=== PATIENT | female | born 1945 | race Caucasian/White ===

== ENCOUNTER 2022-12-01 07:29 | Day surgery (SDC) | payer MEDICARE, SELFPAY ==
[2022-11-27 09:39] VITALS: BMI 27.0
--- NOTE | 2022-11-28 08:07 | MHC.SHP ---
Pre-Procedural Eval Section A Date of Service: 11/28/22 The patient is an INPATIENT: No Changes since office visit: No Cold of Flu in the past 2 weeks, No New Medical Problems, No Changes in Medication and No Patient answered all questions The History & Physical has been completed within 30 days and I have reviewed it.: Yes Section B Chief Complaint: Age-related nuclear cataract, right eye Allergies: Allergies Allergy/AdvReac Type Severity Reaction Status Date / Time Sulfa (Sulfonamide Allergy Unknown Verified 09/26/19 00:00 Antibiotics) Plan Diagnosis/Plan: Unchanged I have reviewed the history and physical and performed a pertinent physical examination on my patient. No changes have occurred unless specified. Time Spent With Patient Time: Total time managing care of this patient today ____ minutes.
--- NOTE | 2022-12-01 07:38 | HO.ANESPROP2 ---
HPI - Anesthesia Eval Consult details Narrative: 77 F for right cataract extraction PMFSH Past Medical History Medical History Bunion Carpal tunnel syndrome Skin cancer Breast cancer GERD (gastroesophageal reflux disease) Elevated cholesterol (atherosclerosis) HTN (hypertension) Functional capacity: independent ambulation Family History Family history of problems with anesthesia: No Surgical History Surgical History History of eyelid surgery History of bunionectomy History of carpal tunnel repair H/O carotid endarterectomy Hx of lumpectomy Hx of appendectomy History of suburethral sling procedure History of Problems with Anesthesia: No Social History Social History Are you a primary progressive care unit registered nurse to a significant other at home: No Do you presently have visiting nurse or other home services: No Patient Tobacco Use Status: Never used Tobacco Use of substances other than those prescribed or required for medical reasons: No Have you been hit, kicked, punched, or otherwise hurt by someone within the past year? If so, by whom?: No Advance Directives: No Advance Directives Information Provided: Yes Advance Directives on File: No Recently lost weight without trying: No Eating poorly because of decreased appetite: No Nutrition Risks: No Nutritional Risk Patient : No : No Poor oral hygiene: Yes (partial upper denture) Meds Allergies Allergy/AdvReac Type Severity Reaction Status Date / Time Sulfa (Sulfonamide Allergy Unknown Redness of Verified 12/01/22 07:46 Antibiotics) Skin Active Medications: Current Medications Cyclopentolate HCl (Cyclopentolate 1 % Ophth Eli 2 Ml Drpbtl) 1 drop EYE-RIGHT Q5M ENEDELIA Stop: 12/01/22 07:41 Ketorolac Tromethamine (Ketorolac Tromethamine 0.5% Op 5 Ml Drops) 1 drop EYE-RIGHT Q5M ENEDELIA Stop: 12/01/22 07:41 Phenylephrine HCl (Phenylephrine Hcl 2.5% Oph Eli 2 Ml Bottle) 1 drop EYE-RIGHT Q5M ENEDELIA Stop: 12/01/22 07:41 Povidone Iodine (Povidone Iodine 5 % Ophth Soln 30 Ml Bottle) 1 appl EYE-RIGHT PREOP PRN PRN Reason: Pre-Op Surgical Implant Prophy Tropicamide (Tropicamide 1 % Ophth Eli 3 Ml Btl) 1 drop EYE-RIGHT Q5M [facility] Stop: 12/01/22 07:41 Home Medications Medication Instructions Recorded Confirmed Last Taken Type amlodipine 5 mg tablet 5 mg PO DAILY 11/27/22 11/27/22 Unknown History anastrozole 1 mg tablet 1 mg PO DAILY 11/27/22 11/27/22 Unknown History aspirin 81 mg tablet,delayed 81 mg PO DAILY 11/27/22 11/27/22 Unknown History release atenolol 25 mg tablet 25 mg PO DAILY 11/27/22 11/27/22 Unknown History calcium carbonate 600 mg calcium 600 mg PO DAILY 11/27/22 11/27/22 Unknown History (1,500 mg) tablet (Calcium) cholecalciferol (vitamin D3) 25 25 mcg PO DAILY 11/27/22 11/27/22 Unknown History mcg (1,000 unit) capsule (Vitamin D3) lactobacillus comb no.10 20 20,000 mmu cells PO DAILY 11/27/22 11/27/22 Unknown History billion cell capsule (Probiotic) multivitamin 1 tab PO DAILY 11/27/22 11/27/22 Unknown History omeprazole 20 mg capsule,delayed 20 mg PO DAILY 11/27/22 11/27/22 Unknown History release simvastatin 20 mg tablet 20 mg PO BEDTIME 11/27/22 11/27/22 Unknown History timolol maleate 0.5 % eye drops 1 drp ophthalmic-Right DAILY 11/27/22 11/27/22 Unknown History Exam Exam Date and Time: December 01, 2022 0738 Height,Weight and Vital Signs: Height 4 ft 10 in Weight 58.513 kg Airway Mallampati Class: III Loose/Missing/Broken Teeth: Yes Assessment and Plan Assessment Anesthesia Assessment: Anesthesia Plan Discussed and Chart Reviewed Final Anesthetic Review Family History of Problems with Anesthesia: No History of Problems with Anesthesia: No NPO: Yes ASA Class: II Final Preanesthetic Review: Meds/Allgs Chart Reviewed, Consent Obtained/Reviewed and Anes Risks/Benef Reviewed Patient Risk: Intermediate Procedure Risk: Intermediate Anesthetic Plan Anesthetic Plan: MAC: Disposition: Standard PACU
[2022-12-01 07:46] VITALS: BP 173/62; PULSE 64; RESP 16; TEMP 36.8; O2SAT 96
[2022-12-01] MEDS: Tetracaine HCl/PF 0.5% Oph Sol 4 ML DROPS 1 DROP EYE-RIGHT (07:50)
[2022-12-01] MEDS: Cyclopentolate 1 % Ophth Sol 2 ML DRPBTL 1 DROP EYE-RIGHT ×3 (07:52→08:03)
[2022-12-01] MEDS: Tropicamide 1 % Ophth Sol 3 ML BTL 1 DROP EYE-RIGHT ×3 (07:53→08:05)
[2022-12-01] MEDS: Ketorolac Tromethamine 0.5% Op 5 ML DROPS 1 DROP EYE-RIGHT ×3 (07:55→08:06)
[2022-12-01] MEDS: Phenylephrine HCL 2.5% Oph SoL 2 ML BOTTLE 1 DROP EYE-RIGHT ×3 (07:57→08:07)
--- NOTE | 2022-12-01 08:37 | HO.PNOPHT ---
Ophthalmology Procedure Procedure Date of Service: 12/01/22 Ophthalmology Viscoelastic: Healon Duet Dual Pack Pro Ophthalmology Lenses: TECNIS [id number] (20.5) Procedure Notes: PREOPERATIVE DIAGNOSIS: Decreased visual acuity right eye secondary to cataract POSTOPERATIVE DIAGNOSIS: Same PROCEDURE: Right cataract extraction with intraocular lens insertion SURGEON: Faizan Small M.D. ANESTHESIA: Topical/MAC ESTIMATED BLOOD LOSS: None COMPLICATIONS: None After obtaining informed consent, the patient was brought to the operating room suite and placed in the supine position. After adequate sedation per anesthesia, topical drops of Tetracaine were given to the right eye. The eye was then prepped and draped in the usual sterile fashion. The operating room microscope was then positioned over the operative eye and a lid speculum placed. A paracentesis was created. Viscoelastic was then instilled into the anterior chamber. A three plane incision was then created temporally, utilizing a 2.85 mm keratome. Capsulotomy forceps were then utilized to create a circular tear capsulotomy. Hydrodissection and hydrodelineation were carried out until adequate mobilization of the nucleus occurred. Phacoemulsification was then utilized to remove the dense central nucleus followed by removal of the cortical material utilizing the automated aspiration irrigation unit. Viscoelastic was instilled into the posterior capsular bag followed by placement of a posterior chamber intraocular lens without difficulty. The residual Viscoelastic was then removed utilizing the automated IA machine. The wound was checked and found to be watertight. The patient tolerated the procedure well and the lid speculum was removed. Intracameral injection of Vigamox 0.1 mL followed by a subtenon injection of Kenalog-40 0.2 mL were administered. The patient will be seen in the a.m.
[2022-12-01 09:00] VITALS: BP 147/57; PULSE 60; RESP 13; TEMP 36.3; O2SAT 99
== END 2022-12-01 09:23 | disposition home or self-care (01) ==
PROVIDERS: PCP Nurse Practitioner Family; Visit Provider Ophthalmology
PROC: (CPT 66985; principal; 2022-12-01 09:10)
DX: H25.11 Age-related nuclear cataract, right eye (principal); H54.7 Unspecified visual loss; E78.5 Hyperlipidemia, unspecified; I10 Essential (primary) hypertension; Z85.3 Personal history of malignant neoplasm of breast; Z85.828 Personal history of other malignant neoplasm of skin; Z79.82 Long term (current) use of aspirin; Z79.899 Other long term (current) drug therapy
CPT/HCPCS: 66984; J2250; J2405; J3010; J3301; V2632

== ENCOUNTER 2022-12-15 07:41 | Day surgery (SDC) | payer MEDICARE, SELFPAY ==
[2022-11-27 09:44] VITALS: BMI 27.0
--- NOTE | 2022-12-12 07:48 | MHC.SHP ---
Pre-Procedural Eval Section A Date of Service: 12/12/22 The patient is an INPATIENT: No Changes since office visit: No Cold of Flu in the past 2 weeks, No New Medical Problems, No Changes in Medication and No Patient answered all questions The History & Physical has been completed within 30 days and I have reviewed it.: Yes Section B Chief Complaint: Age-related nuclear cataract, left eye Allergies: Allergies Allergy/AdvReac Type Severity Reaction Status Date / Time Sulfa (Sulfonamide Allergy Unknown Redness of Verified 12/01/22 07:46 Antibiotics) Skin Plan Diagnosis/Plan: Unchanged I have reviewed the history and physical and performed a pertinent physical examination on my patient. No changes have occurred unless specified. Time Spent With Patient Time: Total time managing care of this patient today ____ minutes.
--- NOTE | 2022-12-12 10:50 | P.CONAN_ITS ---
Documented by User: Cindy Rojo NP 12/12/22 10:50 HPI - Anesthesia Eval Consult details Narrative: 77yo F for Left Cataract Extraction IOL Insertion PCP cleared Right eye 12/01/22: Fent 50, Midaz 1, Zofran 4 PMFSH Past Medical History Medical History Bunion Carpal tunnel syndrome Skin cancer Breast cancer GERD (gastroesophageal reflux disease) Elevated cholesterol (atherosclerosis) HTN (hypertension) Family History Family history of problems with anesthesia: No Surgical History Surgical History History of eyelid surgery History of bunionectomy History of carpal tunnel repair H/O carotid endarterectomy Hx of lumpectomy Hx of appendectomy History of suburethral sling procedure History of Problems with Anesthesia: No Social History Social History Are you a primary pharmacy care coordinator to a significant other at home: No Do you presently have visiting nurse or other home services: No Patient Tobacco Use Status: Never used Tobacco Use of substances other than those prescribed or required for medical reasons: No Have you been hit, kicked, punched, or otherwise hurt by someone within the past year? If so, by whom?: No Advance Directives: No Advance Directives Information Provided: Yes Advance Directives on File: No Recently lost weight without trying: No Eating poorly because of decreased appetite: No Nutrition Risks: No Nutritional Risk Patient : No : No Poor oral hygiene: Yes (partial upper denture) Meds Allergies Allergy/AdvReac Type Severity Reaction Status Date / Time Sulfa (Sulfonamide Allergy Unknown Redness of Verified 12/01/22 07:46 Antibiotics) Skin Home Medications Medication Instructions Recorded Confirmed Last Taken Type amlodipine 5 mg tablet 5 mg PO DAILY 11/27/22 11/27/22 12/15/22 History anastrozole 1 mg tablet 1 mg PO DAILY 11/27/22 11/27/22 12/15/22 History aspirin 81 mg tablet,delayed 81 mg PO DAILY 11/27/22 11/27/22 Unknown History release atenolol 25 mg tablet 25 mg PO DAILY 11/27/22 11/27/22 Unknown History calcium carbonate 600 mg calcium 600 mg PO DAILY 11/27/22 11/27/22 Unknown History (1,500 mg) tablet (Calcium) cholecalciferol (vitamin D3) 25 25 mcg PO DAILY 11/27/22 11/27/22 Unknown History mcg (1,000 unit) capsule (Vitamin D3) lactobacillus comb no.10 20 20,000 mmu cells PO DAILY 11/27/22 11/27/22 Unknown History billion cell capsule (Probiotic) multivitamin 1 tab PO DAILY 11/27/22 11/27/22 Unknown History omeprazole 20 mg capsule,delayed 20 mg PO DAILY 11/27/22 11/27/22 Unknown History release simvastatin 20 mg tablet 20 mg PO BEDTIME 11/27/22 11/27/22 Unknown History timolol maleate 0.5 % eye drops 1 drp ophthalmic-Right DAILY 11/27/22 11/27/22 Unknown History Exam Exam Date and Time: December 12, 2022 1050 Height,Weight and Vital Signs: Height 4 ft 10 in Weight 58.513 kg Assessment and Plan Assessment Anesthesia Assessment: Chart Reviewed Final Anesthetic Review Family History of Problems with Anesthesia: No History of Problems with Anesthesia: No Documented by User: Yayo Clark MD 12/15/22 08:29 [facility] Past Medical History Medical History Bunion Carpal tunnel syndrome Skin cancer Breast cancer GERD (gastroesophageal reflux disease) Elevated cholesterol (atherosclerosis) HTN (hypertension) Surgical History Surgical History History of eyelid surgery History of bunionectomy History of carpal tunnel repair H/O carotid endarterectomy Hx of lumpectomy Hx of appendectomy History of suburethral sling procedure Social History Social History Are you a primary pharmacy care coordinator to a significant other at home: No Do you presently have visiting nurse or other home services: No Patient Tobacco Use Status: Never used Tobacco Use of substances other than those prescribed or required for medical reasons: No Have you been hit, kicked, punched, or otherwise hurt by someone within the past year? If so, by whom?: No Advance Directives: No Advance Directives Information Provided: Yes Advance Directives on File: No Recently lost weight without trying: No Eating poorly because of decreased appetite: No Nutrition Risks: No Nutritional Risk Patient : No : No Poor oral hygiene: Yes (partial upper denture) Meds Allergies Allergy/AdvReac Type Severity Reaction Status Date / Time Sulfa (Sulfonamide Allergy Unknown Redness of Verified 12/01/22 07:46 Antibiotics) Skin Home Medications Medication Instructions Recorded Confirmed Last Taken Type amlodipine 5 mg tablet 5 mg PO DAILY 11/27/22 11/27/22 12/15/22 History anastrozole 1 mg tablet 1 mg PO DAILY 11/27/22 11/27/22 12/15/22 History aspirin 81 mg tablet,delayed 81 mg PO DAILY 11/27/22 11/27/22 Unknown History release atenolol 25 mg tablet 25 mg PO DAILY 11/27/22 11/27/22 Unknown History calcium carbonate 600 mg calcium 600 mg PO DAILY 11/27/22 11/27/22 Unknown History (1,500 mg) tablet (Calcium) cholecalciferol (vitamin D3) 25 25 mcg PO DAILY 11/27/22 11/27/22 Unknown History mcg (1,000 unit) capsule (Vitamin D3) lactobacillus comb no.10 20 20,000 mmu cells PO DAILY 11/27/22 11/27/22 Unknown History billion cell capsule (Probiotic) multivitamin 1 tab PO DAILY 11/27/22 11/27/22 Unknown History omeprazole 20 mg capsule,delayed 20 mg PO DAILY 11/27/22 11/27/22 Unknown History release simvastatin 20 mg tablet 20 mg PO BEDTIME 11/27/22 11/27/22 Unknown History timolol maleate 0.5 % eye drops 1 drp ophthalmic-Right DAILY 11/27/22 11/27/22 Unknown History Exam Airway Mallampati Class: II TM Dist: >3cm Neck ROM: Full Loose/Missing/Broken Teeth: Yes Heart: [id number] Lungs: cta b/l Assessment and Plan Assessment Anesthesia Assessment: Anesthesia Plan Discussed Final Anesthetic Review NPO: Yes ASA Class: II Final Preanesthetic Review: No Changes in Pt Med Stat, Meds/Allgs Chart Reviewed, Consent Obtained/Reviewed and Anes Risks/Benef Reviewed Patient Risk: Intermediate Procedure Risk: Intermediate Assessment/Block/Sedation in SS: Assess/Block/Sedation-SS Anesthetic Plan Anesthetic Plan: MAC: and Agree w/ Assess. and Plan Disposition: Standard PACU
[2022-12-15 08:31] VITALS: BP 143/64; PULSE 62; RESP 16; TEMP 36.9; O2SAT 95
[2022-12-15] MEDS: Lactated Ringers 500 ML 50 ML IV (08:34)
[2022-12-15] MEDS: Tetracaine HCl/PF 0.5% Oph Sol 4 ML DROPS 1 DROP EYE-LEFT (08:34)
[2022-12-15] MEDS: Cyclopentolate 1 % Ophth Sol 2 ML DRPBTL 1 DROP EYE-LEFT ×3 (08:36→08:42)
[2022-12-15] MEDS: Ketorolac Tromethamine 0.5% Op 5 ML DROPS 1 DROP EYE-LEFT ×3 (08:37→08:42)
[2022-12-15] MEDS: Tropicamide 1 % Ophth Sol 3 ML BTL 1 DROP EYE-LEFT ×3 (08:37→08:42)
[2022-12-15] MEDS: Phenylephrine HCL 2.5% Oph SoL 2 ML BOTTLE 1 DROP EYE-LEFT ×3 (08:38→08:44)
--- NOTE | 2022-12-15 09:26 | HO.PNOPHT ---
Ophthalmology Procedure Procedure Date of Service: 12/15/22 Ophthalmology Viscoelastic: Healon Duet Dual Pack Pro Ophthalmology Lenses: TECNIS [id number] (20.5) Procedure Notes: PREOPERATIVE DIAGNOSIS: Decreased visual acuity left eye secondary to cataract POSTOPERATIVE DIAGNOSIS: Same PROCEDURE: Left cataract extraction with intraocular lens insertion SURGEON: Faizan Small M.D. ANESTHESIA: Topical/MAC ESTIMATED BLOOD LOSS: None COMPLICATIONS: None After obtaining informed consent, the patient was brought to the operation room suite and placed in the supine position. After adequate sedation per anesthesia, topical drops of Tetracaine were given to the left eye. The eye was then prepped and draped in the usual sterile fashion. The operating room microscope was then positioned over the operative eye and a lid speculum placed. A paracentesis was created. Viscoelastic was then instilled into the anterior chamber. A three plane incision was then created temporally, utilizing a 2.85 mm keratome. Capsulotomy forceps were then utilized to create a circular tear capsulotomy. Hydrodissection and hydrodelineation were carried out until adequate mobilization of the nucleus occurred. Phacoemulsification was then utilized to remove the dense central nucleus followed by removal of the cortical material utilizing the automated aspiration irrigation unit. Viscoat elastic was instilled into the posterior capsular bag followed by placement of a posterior chamber intraocular lens without difficulty. The residual Viscoat elastic was then removed utilizing the automated IA machine. The wound was check and found to be watertight. The patient tolerated the procedure well and the lid speculum was removed. Intracameral injection of Vigamox 0.1 mL followed by a subtenon injection of Kenalog-40 0.2 mL were administered. The patient will be seen in the a.m.
[2022-12-15 09:49] VITALS: BP 144/56; PULSE 60; RESP 16; TEMP 36.2; O2SAT 97
== END 2022-12-15 10:06 | disposition home or self-care (01) ==
PROVIDERS: PCP Nurse Practitioner Family; Visit Provider Ophthalmology
PROC: (CPT 66985; principal; 2022-12-15 09:40)
DX: H25.12 Age-related nuclear cataract, left eye (principal); H52.4 Presbyopia; H40.9 Unspecified glaucoma; H40.051 Ocular hypertension, right eye; H43.399 Other vitreous opacities, unspecified eye; H11.153 Pinguecula, bilateral; H18.413 Arcus senilis, bilateral; I10 Essential (primary) hypertension; E78.2 Mixed hyperlipidemia; M85.80 Other specified disorders of bone density and structure, unspecified site; K21.9 Gastro-esophageal reflux disease without esophagitis; C50.911 Malignant neoplasm of unspecified site of right female breast; Z79.811 Long term (current) use of aromatase inhibitors; Z79.899 Other long term (current) drug therapy; Z66 Do not resuscitate; Z88.2 Allergy status to sulfonamides
CPT/HCPCS: 66984; J2250; J3301; V2632

== ENCOUNTER 2023-12-07 12:20 | Outpatient (AMB) | payer MEDICARE, SELFPAY ==
[2023-12-07 12:31] VITALS: BP 140/70; PULSE 62; O2SAT 97; BMI 26.5
--- NOTE | 2023-12-07 12:31 | A.OFFPC_ITS ---
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 Architectural Draftsperson Required: No Accompanied by: Self / Same As Patient Allergies Sulfa (Sulfonamide Antibiotics) Allergy (Unknown, Verified 12/07/23 17:05) Redness of Skin Medication List - Last Reconciled 12/07/23 [facility] amlod[facility]ine 5 mg PO DAILY 90 days anastrozole 1 mg PO DAILY aspirin 81 mg PO DAILY atenolol 25 mg PO DAILY 90 days calcium carbonate (Calcium 600) 600 mg PO DAILY cholecalciferol (vitamin D3) (Vitamin D3) 25 mcg PO DAILY lactobacillus comb no.10 (Probiotic) 20,000 mmu cells PO DAILY multivitamin 1 tab PO DAILY omeprazole 20 mg PO DAILY 90 days simvastatin 20 mg PO BEDTIME 90 days timolol maleate 0.5% 1 drp ophthalmic-Right DAILY Tobacco use date assessed: 12/07/23 Fall risk assessment: No Falls in past year Last assessed Fall Risk: 12/07/23 Dental Screening Dental Screen Date: 12/07/23 Did you have a dental visit in the last 12 months?: Yes Did you have a dental problem in the last 6 months where you did not have access to dental care?: No Was dental information given to patient?: Patient has dentist HPI SUPERVISOR ADVICE requesting pe HPI Details New pt is here to establish care. Will order labs. Colon screen is up to date according to pt, will track this down. Mammo is up to date according to pt. Pt sees oncology due to hx of breast cancer. She also sees derm due to hx of skin cancer. HTN: Blood pressure is stable today. Denies chest pain, shortness of breath, headache, dizziness, and blurred vision. [facility] Medical History (Updated 12/07/23 @ 13:04 by ZORAN Martin) Bunion Carpal tunnel syndrome Skin cancer Breast cancer GERD (gastroesophageal reflux disease) Elevated cholesterol (atherosclerosis) HTN (hypertension) Surgical History History of eyelid surgery History of bunionectomy History of carpal tunnel repair H/O carotid endarterectomy Hx of lumpectomy Hx of appendectomy History of suburethral sling procedure Family History Mother Lung cancer Father Suicide Mental health problem Social History [facility] Are you a primary critical care nurse specialist to a significant other at home: No Do you presently have visiting nurse or other home services: No Alcohol intake: current Alcohol intake frequency: a few times a month Alcohol type: wine Patient Tobacco Use Status: Never used Tobacco e-Cigarette/Vaping Use: Never Used service: No Current occupational status: retired Current occupational exposures/hazards: No Cognitive needs: No Hearing needs: No Vision needs: Yes Questionnaire PHQ-9 Over the last 2 weeks, how often have you been bothered by any of the following problems? 1. Little interest or pleasure in doing things: not at all 2. Feeling down, depressed, or hopeless: not at all 3. Trouble falling or staying asleep, or sleeping too much: not at all 4. Feeling tired or having little energy: not at all 5. Poor appetite or overeating: not at all 6. Feeling bad about yourself - or that you are a failure or have let yourself or your family down: not at all 7. Trouble concentrating on things, such as reading the newspaper or watching television: not at all 8. Moving or speaking so slowly that other people could have noticed. Or the opposite - being so fidgety or restless that you have been moving around a lot more than usual: not at all 9. Thoughts that you would be better off or of hurting yourself in some way: not at all Total score: 0 Depression Screening Interpretation: Negative Depression Screening Done: Yes 15392 - PHQ-9 Billing: Yes Source: Developed by Drs. Aman Bursn, Leann Graves, Rafael Bae and colleagues, with an educational jose guadalupe from [employer]. Thrive Questionnaire Date Thrive assessed: 12/07/23 I am a: Patient What is your living situation today?: I have a steady place to live Within the past 12 months, did the food you bought not last and you didn't have the money to get more?: Never true Within the past 12 months, did you worry whether your food would run out before you got money to buy more?: Never true Do you have trouble paying for medicines?: No Do you have trouble getting transportation to medical appointments?: No Do you have trouble paying your heating and electricity bill?: No Do you have trouble taking care of your child, family member or friend?: No Do you have trouble with day-to-day activities such as bathing, preparing meals, shopping, managing finances, etc.?: No Are you currently unemployed and looking for a job?: No Are you interested in more education?: No Please select the resources that you would like help with: None Currently or been in a relationship where the following occur: No concerns reported THRIVE Score: 0 AUDIT C Alcohol Use Questionnaire (AUDIT-C) 1. How often do you have a drink containing alcohol?: 2-4 times a month 2. How many drinks containing alcohol do you have on a typical day when you are drinking?: 1 or 2 3. How often do you have six or more drinks on one occasion?: Never Total Score: 2 Score Reviewed/Action Taken: Yes DAIANA-7 AMB Questionnaire DAIANA-7 Date DAIANA - 7 assessed: 12/07/23 Feeling nervous, anxious, or on edge: 0 = Not at all Not being able to stop or control worryin = Not at all Worrying too much about different things: 0 = Not at all Trouble relaxin = Not at all Being so restless that it is hard to sit still: 0 = Not at all Becoming easily annoyed or irritable: 0 = Not at all Feeling afraid as if something awful might happen: 0 = Not at all Total DAIANA-7 score (0-4 normal; 5-9 mild; 10-14 moderate; 15-21 severe): 0 Source: Developed by Drs. Aman Burns, Leann Graves, Rafael Bae and colleagues, with an educational jose guadalupe from [employer]. DAIANA-7 Assessment Billing DAIANA-7 Assessment Tool: DAIANA-7 Assessment 54646 Review of Systems Const Denies chills and Denies fever(s) Eyes Denies blurry vision ENT Denies vertigo, Denies dizziness and Denies sore throat Card Denies chest pain at rest, Denies chest pain with activity, Denies diaphoresis, Denies dyspnea and Denies dyspnea on exertion Resp Denies cough, Denies dyspnea, Denies dyspnea on exertion and Denies wheezing GI Denies abdominal pain, Denies melena, Denies hematochezia, Denies constipation, Denies diarrhea and Denies loose stools Denies hematuria Musc Denies numbness and Denies tingling Skin/Breast Denies lesions Neuro Denies vertigo, Denies dizziness, Denies numbness and Denies tingling Psych Denies anxiety, Denies depression, Denies homicidal ideation, Denies suicidal ideation and Denies other (substance abuse) Aller/Immun Denies wheezing Physical exam (Primary Care) Vital Signs: Last Vital Signs Pulse 62 12/07/23 12:31 BP 138/72 12/07/23 13:09 Pulse Ox 97 12/07/23 12:31 BMI result Body Mass Index 26.5 Tobacco/Smoking Status: Tobacco use Status Tobacco use date assessed 12/07/23 12/07/23 12:33 Patient Tobacco Use Status Never used Tobacco 12/07/23 12:40 e-Cigarette/Vaping Use Never Used 12/07/23 12:40 PHQ-9: PHQ-9 Score PHQ-9: Total score 0 12/07/23 13:21 Depression Screening Interpretation: Negative Thrive Assessment: Date of Thrive Assessment Date Thrive assessed 12/07/23 12/07/23 12:33 Currently or been in a relationship where the following occur: No concerns reported Const General: cooperative Nutritional Appearance: well nourished Orientation/consciousness: patient oriented x3 HENMT Head: Yes normal to inspection, Yes normocephalic and Yes atraumatic Ears: TM's normal bilaterally Eyes General: appearance normal, both eyes and all related structures Alignment and Position: alignment normal and position normal Neck Neck: Yes normal visual inspection, Yes no lymphadenopathy and Yes supple Resp Effort & Inspection: normal respiratory effort Auscultation: clear to auscultation bilaterally Cardio Rate: regular rate Rhythm: regular rhythm Heart sounds: S1 normal heart sound present, S2 normal heart sound present and no murmurs GI Palpation (GI): Soft to palpation and nontender Auscultation: normal bowel sounds Skin Other: multiple skin tags to neck (posterior/lateral/anterior) Rashes: no rashes Neuro General: patient oriented x3, moves all extremities, no focal motor deficits and deep tendon reflexes 2+ bilaterally Romberg Test: Negative Psych Appearance: grossly normal Mental Status: mental status grossly normal Speech and movement: Normal speech and movement present Affect: normal affect Attitude: cooperative Thought process: Normal thought process present Thought content: Normal thought content present Insight: Good insight present (Psych) Judgement: Good judgement present (Psych) Assessment and Plan Assessment & Plan (1) HTN (hypertension): Code(s): I10 - Essential (primary) hypertension Plan: Stable, labs ordered (2) Encounter for routine adult physical exam with abnormal findings: Code(s): Z00.01 - Encounter for general adult medical examination with abnormal findings Plan: Labs ordered (3) Postmenopausal: Code(s): Z78.0 - Asymptomatic menopausal state Plan: Vitamin D ordered, gets bone densities through hem/oncology Plan The patient agreed to the use of a certified medical asst for this encounter. Scribed for FERMIN King-BC by Ijeoma Diamond certified medical asst, on 12/07/2023 at 12:50 EST. Orders: Orders Vitamin D 25-OH Total Today Z78.0 - Asymptomatic menopausal state Complete Blood Count Auto Diff Today I10 - Essential (primary) hypertension, Z00. - Encounter for general adult medical examination with abnormal findings Comprehensive [place]. Panel Fast Today I10 - Essential (primary) hypertension, Z00. - Encounter for general adult medical examination with abnormal findings TSH reflex Free T4 Today I10 - Essential (primary) hypertension, Z00. - Encounter for general adult medical examination with abnormal findings UA CC w/rflx Micro + Cult Today I10 - Essential (primary) hypertension, Z00. - Encounter for general adult medical examination with abnormal findings Lipid Panel Today I10 - Essential (primary) hypertension, Z00. - Encounter for general adult medical examination with abnormal findings Medications: Changed From amlodipine 5 mg PO DAILY To amlodipine 5 mg PO DAILY 90 tabs 1RF 90 days From simvastatin 20 mg PO BEDTIME To simvastatin 20 mg PO BEDTIME 90 tabs 1RF 90 days From atenolol 25 mg PO DAILY To atenolol 25 mg PO DAILY 90 tabs 1RF 90 days From omeprazole 20 mg PO DAILY To omeprazole 20 mg PO DAILY 90 caps 1RF 90 days Coding Level of Care Code New Pt Level 3 (95834) Diagnoses HTN (hypertension) I10 Encounter for routine adult physical exam with abnormal findings Z00.01 Postmenopausal Z78.0 Additional Codes DAIANA-7 Assessment Billing - DAIANA-7 Assessment Tool: DAIANA-7 Assessment 65154 ([id number])
[2023-12-07 13:09] VITALS: BP 138/72
== END 2023-12-07 14:04 | disposition home or self-care (01) ==
PROVIDERS: Visit Provider Nurse Practitioner Family
DX: I10 Essential (primary) hypertension (principal); Z00.01 Encounter for general adult medical examination with abnormal findings; Z78.0 Asymptomatic menopausal state

== ENCOUNTER → 2023-12-07 12:20 | Outpatient (BNVA) | payer MEDICARE, SELFPAY | PROVIDERS: Visit Provider Nurse Practitioner Family | DX: Z00.01 Encounter for general adult medical examination with abnormal findings (principal); I10 Essential (primary) hypertension; Z78.0 Asymptomatic menopausal state | CPT/HCPCS: 96127; 99202 ==

== ENCOUNTER 2023-12-21 06:18 | Outpatient (REF) | payer MEDICARE, SELFPAY ==
[2023-12-21 09:57] LABS: MANUAL DIFF FLAG NO
[2023-12-21 10:11] LABS: Basophils Percent Auto 0.7 % (0-2); Eosinophils Absolute Auto 0.1 X10*3/uL (0.0-0.4); Eosinophils Percent Auto 2.7 % (0-4); Hematocrit 41.3 % (37.0-47.0); Hemoglobin 13.7 g/dl (12.0-16.0); Imm Gran Abs Auto 0.01 X10*3/uL (0.00-0.03); Imm Gran Pct Auto 0.2 % (0.0-0.4); Lymphocytes Absolute Auto 1.5 X10*3/uL (1.2-4.9); Lymphocytes Percent Auto 33.2 % (20-40); Mean Corpuscular HGB Conc 33.2 g/dl (31.0-35.0); Mean Corpuscular Hemoglobin 29.5 pg (27.0-33.0); Mean Platelet Volume 9.5 fL (9.4-12.3); Monocytes Absolute Auto 0.3 X10*3/uL (0.1-1.2); Monocytes Percent Auto 7.6 % (2-11); Neutrophils Absolute Auto 2.4 x10*3/uL (2.0-8.3); Neutrophils Percent Auto 55.6 % (45-73); Platelet Count 266 X10*3/uL (160-400); Red Blood Count 4.64 X10*6/uL (4.20-5.50); Red Cell Distribution Width 12.7 % (11.0-16.0); White Blood Count 4.4 X10*3/uL (4.8-10.8)
[2023-12-21 10:48] LABS: Alanine Aminotransferase 19 U/L (0-31); Albumin Level 3.9 g/dL (3.5-5.0); Alkaline Phosphatase 74 U/L (39-117); Anion Gap 9 (12-20); Aspartate Amino Transferase 19 U/L (5-31); Bilirubin Total 0.8 mg/dL (0.0-1.0); Blood Urea Nitrogen 17 mg/dL (9-16); Calcium 9.3 mg/dL (8.4-10.2); Carbon Dioxide 31 mmol/L (22-29); Chloride 108 mmol/L (96-108); Cholesterol 147 mg/dL (<200); Estimated Glomerular Filt Rate > 60; Glucose Fasting 89 mg/dL (60-99); HDL Cholesterol 58 mg/dL (>40); LDL Cholesterol Calculated 74 mg/dL (<100); Potassium 3.6 mmol/L (3.3-5.1); Sodium 144 mmol/L (135-145); TSH reflex Free T4 1.42 uIU/mL (0.32-4.0); Total Protein 5.9 g/dL (6.5-8.0); Triglycerides 77 mg/dL (<150); Vitamin D 25-OH Total 70.9 ng/mL (>30)
[2023-12-21 13:25] LABS: Appearance Urine Cloudy; Color Urine Yellow; Glucose Urine UA Negative (Negative); Leukocyte Esterase Urine Small (1+) (Negative); Nitrite Urine Positive (Negative); PH 6.5 (5.0-9.0); UMIC TRIGGER UACC YES; Urine Blood Negative (Negative); Urine Ketones Negative (Negative); Urine Protein Negative (Neg-Trace)
[2023-12-21 13:56] LABS: Bacteria Urine 4+ (None Seen); Calcium Oxalate Crystals Urine Present; Hyaline Casts Urine 0-2 /LPF (0-2); RBC Urine 0-2 /HPF (0-2); UACC Culture Trigger YES; WBC Urine 0-5 /HPF (0-5)
== END 2023-12-21 06:19 | disposition home or self-care (01) ==
LOC: HO.HMGCLDS 06:18
PROVIDERS: PCP Nurse Practitioner Family; Visit Provider Nurse Practitioner Family
DX: Z00.01 Encounter for general adult medical examination with abnormal findings (principal); Z78.0 Asymptomatic menopausal state; I10 Essential (primary) hypertension; R82.79 Other abnormal findings on microbiological examination of urine
CPT/HCPCS: 36415; 80053; 80061; 81001; 82306; 84443; 85025; 87086; 87088; 87186

== ENCOUNTER 2024-01-01 06:05 | Outpatient (REF) | payer MEDICARE, SELFPAY ==
[2024-01-01 10:47] LABS: Appearance Urine Cloudy; Color Urine Yellow; Glucose Urine UA Negative (Negative); Leukocyte Esterase Urine Negative (Negative); Nitrite Urine Negative (Negative); Specific Gravity - Urine 1.015 (1.005-1.025); Urine Blood Negative (Negative); Urine Ketones Negative (Negative); Urine Protein Negative (Neg-Trace)
[2024-01-01 10:54] LABS: MANUAL DIFF FLAG NO
[2024-01-01 10:59] LABS: Basophils Absolute Auto 0.1 X10*3/uL (0.0-0.2); Basophils Percent Auto 1.3 % (0-2); Eosinophils Absolute Auto 0.1 X10*3/uL (0.0-0.4); Eosinophils Percent Auto 1.9 % (0-4); Hematocrit 39.3 % (37.0-47.0); Hemoglobin 13.2 g/dl (12.0-16.0); Imm Gran Abs Auto 0.02 X10*3/uL (0.00-0.03); Imm Gran Pct Auto 0.4 % (0.0-0.4); Lymphocytes Absolute Auto 1.6 X10*3/uL (1.2-4.9); Lymphocytes Percent Auto 33.5 % (20-40); Mean Corpuscular HGB Conc 33.6 g/dl (31.0-35.0); Mean Corpuscular Hemoglobin 29.8 pg (27.0-33.0); Mean Corpuscular Volume 88.7 fL (80.0-98.0); Mean Platelet Volume 9.5 fL (9.4-12.3); Monocytes Absolute Auto 0.4 X10*3/uL (0.1-1.2); Monocytes Percent Auto 7.9 % (2-11); Neutrophils Absolute Auto 2.6 x10*3/uL (2.0-8.3); Platelet Count 269 X10*3/uL (160-400); Red Blood Count 4.43 X10*6/uL (4.20-5.50); Red Cell Distribution Width 12.6 % (11.0-16.0); White Blood Count 4.7 X10*3/uL (4.8-10.8)
== END 2024-01-01 06:06 | disposition home or self-care (01) ==
LOC: HO.HMGCLDS 06:05
PROVIDERS: PCP Nurse Practitioner Family; Visit Provider Nurse Practitioner Family
DX: Z00.01 Encounter for general adult medical examination with abnormal findings (principal); I10 Essential (primary) hypertension; N39.0 Urinary tract infection, site not specified; D72.829 Elevated white blood cell count, unspecified
CPT/HCPCS: 36415; 81003; 85025; 87086

== ENCOUNTER 2024-02-01 06:06 | Outpatient (REF) | payer MEDICARE, SELFPAY ==
[2024-02-01 09:59] LABS: MANUAL DIFF FLAG NO
[2024-02-01 10:21] LABS: Basophils Absolute Auto 0.1 X10*3/uL (0.0-0.2); Basophils Percent Auto 1.4 % (0-2); Eosinophils Absolute Auto 0.1 X10*3/uL (0.0-0.4); Eosinophils Percent Auto 2.2 % (0-4); Hematocrit 39.5 % (37.0-47.0); Hemoglobin 13.2 g/dl (12.0-16.0); Imm Gran Abs Auto 0.01 X10*3/uL (0.00-0.03); Imm Gran Pct Auto 0.2 % (0.0-0.4); Lymphocytes Absolute Auto 1.6 X10*3/uL (1.2-4.9); Lymphocytes Percent Auto 31.5 % (20-40); Mean Corpuscular HGB Conc 33.4 g/dl (31.0-35.0); Mean Corpuscular Volume 89.8 fL (80.0-98.0); Mean Platelet Volume 9.6 fL (9.4-12.3); Monocytes Absolute Auto 0.4 X10*3/uL (0.1-1.2); Monocytes Percent Auto 8.1 % (2-11); Neutrophils Absolute Auto 2.9 x10*3/uL (2.0-8.3); Neutrophils Percent Auto 56.6 % (45-73); Platelet Count 277 X10*3/uL (160-400); Red Cell Distribution Width 12.8 % (11.0-16.0); White Blood Count 5.1 X10*3/uL (4.8-10.8)
== END 2024-02-01 06:07 | disposition home or self-care (01) ==
LOC: HO.HMGCLDS 06:06
PROVIDERS: PCP Nurse Practitioner Family; Visit Provider Nurse Practitioner Family
DX: D72.829 Elevated white blood cell count, unspecified (principal)
CPT/HCPCS: 36415; 85025

== ENCOUNTER 2024-03-08 09:53 | Outpatient (AMB) | payer MEDICARE, SELFPAY ==
[2024-03-08 09:59] VITALS: BP 120/78; PULSE 58; O2SAT 98; BMI 26.5
--- NOTE | 2024-03-08 09:59 | AM.OFFWIN_ITS ---
Intake Vital Signs 03/08/24 09:59 Height 4 ft 10 in Weight 127 lb BMI 26.5 BP 120/78 Blood Pressure Location Rt brachial Position Sitting Pulse 58 Pulse Source Pulse Oximeter Pulse Oximetry (%) 98 Oxygen Delivery Method Room Air Intake Visit Reasons: EP- severe pain rt thigh Intake Note: Patient here for severe pain in right thigh that has been present for about 1 week. Patient Tobacco Use Status: Never used Tobacco Allergies Sulfa (Sulfonamide Antibiotics) Allergy (Unknown, Verified 03/08/24 10:34) Redness of Skin Medication List - Last Reconciled 03/08/24 by Hugh Gibbons MD amlodipine 5 mg PO DAILY 90 days anastrozole 1 mg PO DAILY aspirin 81 mg PO DAILY atenolol 25 mg PO DAILY 90 days calcium carbonate (Calcium 600) 600 mg PO DAILY cholecalciferol (vitamin D3) (Vitamin D3) 25 mcg PO DAILY lactobacillus comb no.10 (Probiotic) 20,000 mmu cells PO DAILY multivitamin 1 tab PO DAILY omeprazole 20 mg PO DAILY 90 days simvastatin 20 mg PO BEDTIME 90 days timolol maleate 0.5% 1 drp ophthalmic-Right DAILY Do you need a note to return to daycare/school/sports/work: No HPI EP- severe pain rt thigh HPI Details 78 yr old female presents to the office for a sick visit. Reporting sharp pain in the right thigh for the past week. No history of trauma prior to onset. No difficulty walking, bearing weight, climbing or coming down stairs. Pain on pressing on a specific area on the thigh, wincing pain. Occ burning on the skin over the area. Prior history of breast Cancer. On ANastrozole. [facility] Medical History (Updated 12/23/23 @ 09:40 by FERMIN Martin-BRITTON) Bunion Carpal tunnel syndrome Skin cancer Breast cancer GERD (gastroesophageal reflux disease) Elevated cholesterol (atherosclerosis) HTN (hypertension) Surgical History History of eyelid surgery History of bunionectomy History of carpal tunnel repair H/O carotid endarterectomy Hx of lumpectomy Hx of appendectomy History of suburethral sling procedure Family History Mother Lung cancer Father Suicide Mental health problem Social History (Reviewed 12/07/23 @ 12:57 by Brenden Sandhu [facility]) Housing: Condominium Are you a primary urgent care physician assistant to a significant other at home: No Do you presently have visiting nurse or other home services: No Alcohol intake: current Alcohol intake frequency: a few times a month Alcohol type: wine Patient Tobacco Use Status: Never used Tobacco e-Cigarette/Vaping Use: Never Used service: No Current occupational status: retired Current occupational exposures/hazards: No Cognitive needs: No Hearing needs: No Vision needs: Yes Physical Exam Vital Signs: Last Vital Signs Pulse 58 03/08/24 09:59 BP 120/78 03/08/24 09:59 Pulse Ox 98 03/08/24 09:59 Oxygen Delivery Method Room Air 03/08/24 09:59 BMI result Body Mass Index 26.5 Const General: cooperative and healthy appearing Nutritional Appearance: well nourished Orientation/consciousness: patient oriented x3 Limitations: no limitations HEENT Head: Yes normal to inspection Eyes General: appearance normal, both eyes and all related structures Neck Neck: Yes normal visual inspection Chest Chest palpation & inspection: normal palpation of entire chest wall Resp Effort & Inspection: normal respiratory effort Neuro General: patient oriented x3 Extrem Other: A female medical office asst in the room during medical exam. Right leg: No visible bruising or rash. Tender area on palpation of the thigh over the medial side. Assessment & Plan Assessment & Plan (1) Deep vein thrombosis: Code(s): I82.409 - Acute embolism and thrombosis of unspecified deep veins of unspecified lower extremity Plan: Stat Ultrasound ordered. Result was read as negative. Patient informed, muscle relaxant and NSAIDS called in. Orders: Orders US venous duplex LE RT Today I82.409 - Acute embolism and thrombosis of unspecified deep veins of unspecified lower extremity Coding Level of Care Code Est Pt Level 4 (62111) Diagnoses Deep vein thrombosis I82.409
== END 2024-03-08 11:49 | disposition home or self-care (01) ==
PROVIDERS: PCP Nurse Practitioner Family; Visit Provider Internal Medicine
DX: I82.409 Acute embolism and thrombosis of unspecified deep veins of unspecified lower extremity (principal)

== ENCOUNTER 2024-03-08 10:31 | Outpatient (REF) | payer MEDICARE, SELFPAY ==
--- NOTE | ~2024-03-08 | US_ITS ---
EXAMINATION: US TRIPLEX LOWER EXTREMITY, RIGHT CLINICAL INFORMATION: Acute embolism and thrombosis of unspecified deep veins of unspecified extremity COMPARISON: None available. TECHNIQUE: Color-flow triplex imaging with spectral analysis and compression Doppler were performed on the right lower extremity. FINDINGS: Respiratory variation, normal compression and augmented flow are noted throughout the right lower extremity. The visualized common femoral vein, superficial femoral vein, profunda femoral vein, popliteal vein and midcalf peroneal and posterior tibial venous segments show no evidence of deep venous thrombosis. There is no Grijalva's cyst. US/US venous duplex LE RT IMPRESSION: No evidence of deep venous thrombosis involving the right lower extremity. This study was presented today to March 08, 2024 for interpretation. Stat results provided at this time as requested by referring provider. Electronically signed by: Griselda Gonzalez MD 03/08/2024 10:54 AM JAMIN EATON
== END 2024-03-08 10:32 | disposition home or self-care (01) ==
LOC: HO.HMGCX 10:31
PROVIDERS: PCP Nurse Practitioner Family; Visit Provider Internal Medicine
DX: I82.401 Acute embolism and thrombosis of unspecified deep veins of right lower extremity (principal)
CPT/HCPCS: 93971; 99212

== ENCOUNTER 2024-03-21 08:20 | Outpatient (AMB) | payer MEDICARE, SELFPAY ==
[2024-03-21 08:24] VITALS: BP 130/78; PULSE 60; O2SAT 97; BMI 27.0
--- NOTE | 2024-03-21 08:24 | MHC.OFFWIV ---
Intake Vital Signs 03/21/24 08:24 Height 4 ft 10 in Weight 129 lb BMI 27.0 BP 130/78 Blood Pressure Location Rt brachial Position Sitting Pulse 60 Pulse Source Pulse Oximeter Pulse Oximetry (%) 97 Oxygen Delivery Method Room Air Intake Visit Reasons: EP-rt side thigh rash Intake Note: Patient here for rash on right thigh that has been present for over 1 week. Patient Tobacco Use Status: Never used Tobacco Allergies Sulfa (Sulfonamide Antibiotics) Allergy (Unknown, Verified 03/21/24 08:33) Redness of Skin Do you need a note to return to daycare/school/sports/work: No HPI HPI Comments History of Present Illness Details History of Present Illness The patient is a 78-year-old female presenting with a rash on her right thigh. - Experienced severe right thigh pain on December 07 and received unspecified medication from Dr. Rodriguez, which reduced pain initially. - Approximately one week ago, developed a rash on the right thigh characterized by stinging, burning, and occasional itching sensations with newly appearing spots. - Rash is mainly on the front of the thigh and described as potentially having fluid-filled bubbles that have since popped. - The rash does not extend to other body areas, supporting the suspicion of herpes zoster. - Patient reports the pain is not severe, with occasional stinging. Physical Exam General: Cooperative, healthy appearing, comfortable, no acute distress and well developed Orientation: Patient oriented x3 Limitations: No limitations Head: Normal to inspection Ears: Hearing grossly normal bilaterally Nose: Normal external nose present Face and sinus: normal facial exam Eyes: Appearance normal, both eyes and all related structures Neck: Normal visual inspection and Yes full ROM Respiratory: Normal respiratory effort and able to speak in complete sentences. Clear to auscultation bilaterally Cardiovascular: Regular rate and rhythm. Normal S1 and S2 Skin: 6-7 areas of 0.25-0.5cm relatively flat erythema on right thigh, no warmth, no drainage, no ecchymosis. Neuro: Patient oriented x3 Extremities: Normal to inspection [facility] Medical History (Updated 03/21/24 @ 08:49 by Lizette Walker PA-C) Bunion Carpal tunnel syndrome Skin cancer Breast cancer GERD (gastroesophageal reflux disease) Elevated cholesterol (atherosclerosis) HTN (hypertension) Surgical History History of eyelid surgery History of bunionectomy History of carpal tunnel repair H/O carotid endarterectomy Hx of lumpectomy Hx of appendectomy History of suburethral sling procedure Family History Mother Lung cancer Father Suicide Mental health problem Social History Housing: Condominium Are you a primary resident care associate to a significant other at home: No Do you presently have visiting nurse or other home services: No Alcohol intake: current Alcohol intake frequency: a few times a month Alcohol type: wine Patient Tobacco Use Status: Never used Tobacco e-Cigarette/Vaping Use: Never Used service: No Current occupational status: retired Current occupational exposures/hazards: No Cognitive needs: No Hearing needs: No Vision needs: Yes Review of Systems Const All systems reviewed & are unremarkable except as noted in HPI and below Physical Exam Vital Signs: Last Vital Signs Pulse 60 03/21/24 08:24 BP 130/78 03/21/24 08:24 Pulse Ox 97 03/21/24 08:24 Oxygen Delivery Method Room Air 03/21/24 08:24 BMI result Body Mass Index 27.0 Assessment & Plan Assessment & Plan (1) Shingles rash: Code(s): B02.9 - Zoster without complications Qualifiers: Herpes zoster complications: without complications Qualified Code(s): B02.9 - Zoster without complications Plan: Plan The suspected case of herpes zoster in the patient will be managed conservatively as antiviral treatment is beyond the effective window. The current mild symptoms do not necessitate gabapentin, and natural resolution is expected. Assurance was given regarding the non-necessity of antiviral therapy at this stage. The patient was advised to monitor her symptoms with the understanding that recurrence or worsening should prompt a return visit or message per PCP via portal for pain meds (Gabapentin) if it becomes more painful. Collaboration with the patient's primary care provider will be maintained for symptom monitoring and management if needed. Patient was informed and verbally consented to the use of an ambient scribe for clinic note documentation during this visit. Coding Level of Care Code Est Pt Level 3 (62616) Diagnoses Herpes zoster without complication B02.9 Herpes zoster complications: without complications
--- OUTSIDE RECORDS SUMMARY | 2024-03-21 08:41 | XMS_ITS | Continuity of Care Document ---
Author Organization [facility] Address [address] [place] [id number]- Care Team Providers Care Clinical Physician Assistant Name Role Phone Meghann IQBAL, Georgie Primary Care Physician [phone] [id number] Date(s): 02/17/24 - 03/18/24 [facility] [address] [place] [id number] Attending Physician: Tino Ratliff Admitting Physician: Tino Ratliff Referring Physician: AdmtrTino Encounter Type: Triage Allergies, Adverse Reactions, Alerts Substance Criticality Severity Reaction Reaction Severity Status Bactrim body turned red , swelling hands and face BP increased Active sulfa drugs body turned red BP increased swelling in hands and face Active Immunizations Given and Recorded Vaccine Date Status Refusal Reason Zostavax (oldterm) 1 11/07/11 Given Influenza Virus Vaccine (oldterm) 01/03/11 Given 1Admin Note: Given [facility] Medications amlodipine 5 mg oral tablet 1 tablet = 5 mg, By Mouth, Daily in AM, 0 Refills, Maintenance, 07/11/14 8:52:36 AM EDT Start Date: 07/11/14 Status: Ordered Repeat number: 1 anastrozole 1 mg oral tablet 1 tablet, By Mouth, Daily, # 90 tablet, 3 Refills, Maintenance, 12/11/23 10:10:00 AM EDT, [facility], 148, cm, 09/25/23 9:32:00 EDT, Height, 51.2, kg, 08/19/23 9:01:00 EDT, Dry Weight Start Date: 12/11/23 Status: Ordered Quantity: 90.0 Unit: tablet Repeat number: 1 aspirin 81 mg oral tablet 1 tablet = 81 mg, By Mouth, Daily, # 30 tablet, 0 Refills, Maintenance, 06/19/10 1:03:30 PM EDT, Tablet Start Date: 06/19/10 Stop Date: 07/19/10 Status: Ordered Quantity: 30.0 Unit: tablet Repeat number: 1 atenolol 25 mg oral tablet 1 tablet = 25 mg, By Mouth, Daily, # 90 tablet, 3 Refills, Maintenance, 01/28/12 3:36:26 PM EST, Tablet, [facility] Start Date: 01/28/12 Stop Date: 01/22/13 Status: Ordered Quantity: 90.0 Unit: tablet Repeat number: 4 Calcium 600 +D 1 tablet, By Mouth, Daily in AM, 0 Refills, Maintenance, 07/11/14 8:53:37 AM EDT Start Date: 07/11/14 Status: Ordered Repeat number: 1 Multivitamin Tablet 1 tab, By Mouth, Daily, 0 Refills, Maintenance, 07/11/14 8:53:26 AM EDT Start Date: 07/11/14 Status: Ordered Repeat number: 1 omeprazole 20 mg oral enteric coated capsule 1 capsule = 20 mg, By Mouth, Daily, # 90 capsule, 3 Refills, Maintenance, 01/28/12 3:27:40 PM EST, EC Capsule, [facility] Start Date: 01/28/12 Stop Date: 01/22/13 Status: Ordered Quantity: 90.0 Unit: capsule Repeat number: 4 Probiotic Formula 1 capsule, By Mouth, Daily in AM, 0 Refills, Maintenance, 02/02/20 2:55:00 PM EST, Partial fill upon patient request Start Date: 02/02/20 Status: Ordered Repeat number: 1 simvastatin 20 mg oral tablet 1 tablet = 20 mg, By Mouth, Daily at bedtime, # 90 tablet, 3 Refills, Maintenance, 09/22/11 1:20:25 PM EDT, Tablet, [facility] Start Date: 09/22/11 Stop Date: 09/16/12 Status: Ordered Quantity: 90.0 Unit: tablet Repeat number: 4 Timolol 0.5% Ophth Daily in AM, Refills 0, Maintenance, 02/02/20 2:55:00 PM EST, Partial fill upon patient request Start Date: 02/02/20 Status: Ordered Repeat number: 1 Vitamin D3 1000 intl units oral tablet 1 tablet = 1,000 International_Units, By Mouth, Daily, 0 Refills, Maintenance, 07/11/14 8:53:08 AM EDT Start Date: 07/11/14 Status: Ordered Repeat number: 1 Problem List Condition Confirmation Course Effective Dates Status Health Status Informant Atherosclerosis Confirmed Active Esophageal reflux (GERD) Confirmed Active Hypercholesterolemia Confirmed Active Hypertension Confirmed Active Malignant neoplasm of upper-outer quadrant of right breast in female, estrogen receptor positive Confirmed Active Overactive bladder Confirmed Active Plantar fasciitis Confirmed Active Social History Social History Type Response Smoking Status Former smoker; Other : quit 1993; entered on: 07/11/14 Sex Sex Representation Female (finding) Patient Care team information Care Team Personnel Name: Jennifer Gomez Position: S Onco RN Member Role: Primary Care Nurse Name: Amberly Harrington Position: [facility] Onco RN Member Role: Primary Care Nurse Name: Georgie Zavaleta NP Position: [facility] Outreach Member Role: PCP Address: [address] [place] [address] Internal Medicine [address] Telecom: Care Team Related Persons Name: HINA TAY Name: SUMI SALDAÑA Insurance Providers Guarantor name: DAVIDE SALDAÑA Health Plan Information #: 1 Payer: MEDICARE PART B OUTPT Member Number: NA Policy Number: NA Group Number: NA Health Plan Information #: 2 Payer: MEDEX Member Number: NA Policy Number: NA Group Number: NA
== END 2024-03-21 09:11 | disposition home or self-care (01) ==
PROVIDERS: PCP Nurse Practitioner Family; Visit Provider Physician Assistant
DX: B02.9 Zoster without complications (principal)

== ENCOUNTER → 2024-03-21 08:20 | Outpatient (BNVA) | payer MEDICARE, SELFPAY | PROVIDERS: PCP Nurse Practitioner Family; Visit Provider Physician Assistant | DX: B02.9 Zoster without complications (principal) | CPT/HCPCS: 99212 ==

== ENCOUNTER 2024-06-07 07:55 | Outpatient (AMB) | payer MEDICARE, SELFPAY ==
[2024-06-07 08:02] VITALS: BP 134/90; PULSE 55; RESP 17; TEMP 36.6; O2SAT 98; BMI 26.6
--- NOTE | 2024-06-07 08:02 | MHC.PC.OV ---
Vital Signs 06/07/24 08:02 06/07/24 08:37 Height 4 ft 10 in Weight 127 lb 4 oz BMI 26.6 BP 134/90 H 138/80 Blood Pressure Location Lt brachial Lt brachial Position Sitting Sitting Respiration 17 Pulse 55 Pulse Source Pulse Oximeter Temp 97.9 F Temp Source Oral Pulse Oximetry (%) 98 Oxygen Delivery Method Room Air Intake Visit Reasons: 6 month follow up Intake Note: Pt is here today for 6 month follow up. Allergies Sulfa (Sulfonamide Antibiotics) Allergy (Unknown, Verified 06/07/24 08:43) Redness of Skin Medication List - Last Reconciled 06/07/24 by Brenden Sandhu, GROUND [employer] CHIEF- amlodipine 10 mg PO DAILY 90 days anastrozole 1 mg PO DAILY aspirin 81 mg PO DAILY atenolol 25 mg PO DAILY 90 days calcium carbonate (Calcium 600) 600 mg PO DAILY cholecalciferol (vitamin D3) (Vitamin D3) 25 mcg PO DAILY cyclobenzaprine 10 mg PO BEDTIME lactobacillus comb no.10 (Probiotic) 20,000 mmu cells PO DAILY meloxicam 15 mg PO DAILY multivitamin 1 tab PO DAILY omeprazole 20 mg PO DAILY 90 days simvastatin 20 mg PO BEDTIME 90 days timolol maleate 0.5% 1 drp ophthalmic-Right DAILY Tobacco use date assessed: 06/07/24 Fall risk assessment: No Falls in past year Last assessed Fall Risk: 06/07/24 Dental Screening Dental Screen Date: 06/07/24 Did you have a dental visit in the last 12 months?: Yes Did you have a dental problem in the last 6 months where you did not have access to dental care?: No Was dental information given to patient?: Patient has dentist HPI 6 month follow up HPI Details Chief Complaint The patient reports suboptimal blood pressure control at home with readings in the 140s-150s mmHg. History of Present Illness The patient is a 79-year-old female presenting for follow-up on her hypertension management. She reports experiencing elevated systolic blood pressure readings in the 140s to 150s mmHg at home. Her current antihypertensive regimen includes amlodipine 5 mg, which she has been taking consistently. The patient denies experiencing any chest pain or dyspnea. She is aware of the cosmetic side effect of lower extremity edema associated with amlodipine. Overall, she reports doing well with her current management. Social History Health Maintenance Review of Systems - Cardiovascular: Reports hypertension with home readings in the 140s-150s mmHg. Denies chest pain, dizziness, blurred vision, MENDOZA - Respiratory: Denies shortness of breath. Physical Exam General: Cooperative, healthy appearing, comfortable, no acute distress and well developed Orientation: Patient oriented x3 Limitations: No limitations Head: Normal to inspection Ears: Hearing grossly normal bilaterally Nose: Normal external nose present Face and sinus: Normal facial exam Eyes: Appearance normal, both eyes and all related structures Neck: Normal visual inspection and Yes full ROM Respiratory: Normal respiratory effort and able to speak in complete sentences. Clear to auscultation bilaterally Cardiovascular: Regular rate and rhythm. Normal S1 and S2, no carotid bruits noted GI: Normal to inspection. Soft to palpation and nontender Skin: no edema noted Neuro: Patient oriented x3 Extremities: Normal to inspection, no edema noted Results - Labs: Labs were entered; specific results not discussed. Plan The patient?s amlodipine dosage will be increased from 5 mg to 10 mg to manage her elevated systolic blood pressure readings ranging from 140s to 150s mmHg. I informed her of the potential increase in lower extremity edema with the higher dosage. She is to continue regular home blood pressure monitoring, and adjustments will be made as needed based on her blood pressure response and symptomatology. Follow-up arrangements will be determined according to her response to the therapy. She will contact the office if she continues to be elevated at home Discussion Notes Today, I discussed with the patient her hypertension management and the decision to increase her amlodipine dosage from 5 mg to 10 mg to better control her systolic blood pressure. I outlined the expected benefits of improved blood pressure control and addressed potential side effects, such as increased lower extremity edema. The patient understands the importance of monitoring her blood pressure readings at home and communicating any significant changes or side effects. We mutually agreed on this plan, knowing it may require further adjustments based on her response. Patient Instructions - Increase amlodipine dosage to 10 mg daily as discussed. - Continue monitoring blood pressure at home regularly. - Report any new symptoms or significant changes in blood pressure readings. - Be aware of potential side effects, such as increased lower extremity edema. - Follow up as advised or if concerns arise. [facility] Medical History (Updated 03/21/24 @ 08:49 by Lizette Walker PA-C) Bunion Carpal tunnel syndrome Skin cancer Breast cancer GERD (gastroesophageal reflux disease) Elevated cholesterol (atherosclerosis) HTN (hypertension) Surgical History History of eyelid surgery History of bunionectomy History of carpal tunnel repair H/O carotid endarterectomy Hx of lumpectomy Hx of appendectomy History of suburethral sling procedure Family History Mother Lung cancer Father Suicide Mental health problem Social [facility] Are you a primary complex care nurse to a significant other at home: No Do you presently have visiting nurse or other home services: No Alcohol intake: current Alcohol intake frequency: a few times a month Alcohol type: wine Patient Tobacco Use Status: Never used Tobacco e-Cigarette/Vaping Use: Never Used service: No Current occupational status: retired Current occupational exposures/hazards: No Cognitive needs: No Hearing needs: No Vision needs: Yes Questionnaire PHQ-9 Over the last 2 weeks, how often have you been bothered by any of the following problems? 1. Little interest or pleasure in doing things: not at all 2. Feeling down, depressed, or hopeless: not at all 3. Trouble falling or staying asleep, or sleeping too much: not at all 4. Feeling tired or having little energy: not at all 5. Poor appetite or overeating: not at all 6. Feeling bad about yourself - or that you are a failure or have let yourself or your family down: not at all 7. Trouble concentrating on things, such as reading the newspaper or watching television: not at all 8. Moving or speaking so slowly that other people could have noticed. Or the opposite - being so fidgety or restless that you have been moving around a lot more than usual: not at all 9. Thoughts that you would be better off or of hurting yourself in some way: not at all Total score: 0 Depression Screening Interpretation: Negative Depression Screening Done: Yes 17052 - PHQ-9 Billing: Yes Source: Developed by Drs. Aman Burns, Leann Graves, Rafael Bae and colleagues, with an educational jose guadalupe from [employer]. Thrive Questionnaire Date Thrive assessed: 06/07/24 I am a: Patient What is your living situation today?: I have a steady place to live Within the past 12 months, did the food you bought not last and you didn't have the money to get more?: Never true Within the past 12 months, did you worry whether your food would run out before you got money to buy more?: Never true Do you have trouble paying for medicines?: No Do you have trouble getting transportation to medical appointments?: No Do you have trouble paying your heating and electricity bill?: No Do you have trouble taking care of your child, family member or friend?: No Do you have trouble with day-to-day activities such as bathing, preparing meals, shopping, managing finances, etc.?: No Are you currently unemployed and looking for a job?: No Are you interested in more education?: No Please select the resources that you would like help with: None Currently or been in a relationship where the following occur: No concerns reported THRIVE Score: 0 AUDIT C Alcohol Use Questionnaire (AUDIT-C) 1. How often do you have a drink containing alcohol?: 2-4 times a month 2. How many drinks containing alcohol do you have on a typical day when you are drinking?: 1 or 2 3. How often do you have six or more drinks on one occasion?: Never Total Score: 2 Score Reviewed/Action Taken: Yes DAIANA-7 AMB Questionnaire DAIANA-7 Date DAIANA - 7 assessed: 06/07/24 Feeling nervous, anxious, or on edge: 0 = Not at all Not being able to stop or control worryin = Not at all Worrying too much about different things: 0 = Not at all Trouble relaxin = More than half the days Being so restless that it is hard to sit still: 0 = Not at all Becoming easily annoyed or irritable: 0 = Not at all Feeling afraid as if something awful might happen: 0 = Not at all Total DAIANA-7 score (0-4 normal; 5-9 mild; 10-14 moderate; 15-21 severe): 2 Source: Developed by Drs. Aman Burns, Leann Graves, Rafael Bae and colleagues, with an educational jose guadalupe from [employer]. DAIANA-7 Assessment Billing DAIANA-7 Assessment Tool: DAIANA-7 Assessment 67799 Physical exam (Primary Care) Vital Signs: Last Vital Signs Temp 97.9 F 06/07/24 08:02 Pulse 55 06/07/24 08:02 Resp 17 06/07/24 08:02 BP 134/90 H 06/07/24 08:02 Pulse Ox 98 06/07/24 08:02 Oxygen Delivery Method Room Air 06/07/24 08:02 BMI result Body Mass Index 26.6 Tobacco/Smoking Status: Tobacco use Status Tobacco use date assessed 06/07/24 06/07/24 08:08 Patient Tobacco Use Status Never used Tobacco 06/07/24 08:08 e-Cigarette/Vaping Use Never Used 06/07/24 08:08 PHQ-9: PHQ-9 Score PHQ-9: Total score 0 06/07/24 08:33 Depression Screening Interpretation: Negative Thrive Assessment: Date of Thrive Assessment Date Thrive assessed 06/07/24 06/07/24 08:08 Currently or been in a relationship where the following occur: No concerns reported Coding Level of Care Code Est Pt Level 3 (02631) Diagnoses HTN (hypertension) I10 Postmenopausal Z78.0 Additional Codes DAIANA-7 Assessment Billing - DAIANA-7 Assessment Tool: DAIANA-7 Assessment 34153 ([id number]) PHQ-9 - 05846 - PHQ-9 Billing: Yes ([id number]) Assessment & Plan Assessment & Plan (1) HTN (hypertension): Code(s): I10 - Essential (primary) hypertension Category: Medical (2) Postmenopausal: Code(s): Z78.0 - Asymptomatic menopausal state Category: Medical Plan . Orders: Orders Vitamin D 25-OH Total Today Z78.0 - Asymptomatic menopausal state Complete Blood Count Auto Diff Today I10 - Essential (primary) hypertension Comprehensive Lee. Panel Fast Today I10 - Essential (primary) hypertension TSH reflex Free T4 Today I10 - Essential (primary) hypertension UA CC w/rflx Micro + Cult Today I10 - Essential (primary) hypertension Lipid Panel Today I10 - Essential (primary) hypertension Medications: Changed From amlodipine 5 mg PO DAILY 90 days 90 tabs 1RF To amlodipine 10 mg PO DAILY 90 days 90 tabs 1RF Refilled omeprazole 20 mg PO DAILY 90 days 90 caps 1RF
[2024-06-07 08:37] VITALS: BP 138/80
== END 2024-06-07 08:45 | disposition home or self-care (01) ==
LOC: HO.HMCC 07:56
PROVIDERS: PCP Nurse Practitioner Family; Visit Provider Nurse Practitioner Family
DX: I10 Essential (primary) hypertension (principal); Z78.0 Asymptomatic menopausal state

== ENCOUNTER → 2024-06-07 07:55 | Outpatient (BNVA) | payer MEDICARE, SELFPAY | PROVIDERS: PCP Nurse Practitioner Family; Visit Provider Nurse Practitioner Family | DX: I10 Essential (primary) hypertension (principal); Z78.0 Asymptomatic menopausal state | CPT/HCPCS: 96127; 99212 ==

== ENCOUNTER 2024-07-07 06:13 | Outpatient (REF) | payer MEDICARE, SELFPAY ==
[2024-07-07 10:41] LABS: MANUAL DIFF FLAG NO
[2024-07-07 10:49] LABS: Basophils Absolute Auto 0.1 X10*3/uL (0.0-0.2); Basophils Percent Auto 1.3 % (0-2); Eosinophils Absolute Auto 0.1 X10*3/uL (0.0-0.4); Eosinophils Percent Auto 2.4 % (0-4); Hematocrit 39.5 % (37.0-47.0); Hemoglobin 13.5 g/dl (12.0-16.0); Imm Gran Abs Auto 0.01 X10*3/uL (0.00-0.03); Imm Gran Pct Auto 0.2 % (0.0-0.4); Lymphocytes Absolute Auto 1.4 X10*3/uL (1.2-4.9); Lymphocytes Percent Auto 31.3 % (20-40); Mean Corpuscular HGB Conc 34.2 g/dl (31.0-35.0); Mean Corpuscular Hemoglobin 30.4 pg (27.0-33.0); Mean Platelet Volume 9.7 fL (9.4-12.3); Monocytes Absolute Auto 0.4 X10*3/uL (0.1-1.2); Monocytes Percent Auto 7.9 % (2-11); Neutrophils Absolute Auto 2.6 x10*3/uL (2.0-8.3); Neutrophils Percent Auto 56.9 % (45-73); Platelet Count 279 X10*3/uL (160-400); Red Blood Count 4.44 X10*6/uL (4.20-5.50); Red Cell Distribution Width 12.5 % (11.0-16.0); White Blood Count 4.5 X10*3/uL (4.8-10.8)
[2024-07-07 11:21] LABS: Appearance Urine Cloudy; Color Urine Yellow; Glucose Urine UA Negative (Negative); Leukocyte Esterase Urine Small (1+) (Negative); Nitrite Urine Negative (Negative); PH 6.5 (5.0-9.0); Specific Gravity - Urine 1.015 (1.005-1.025); UMIC TRIGGER UACC YES; Urine Blood Negative (Negative); Urine Ketones Negative (Negative); Urine Protein Negative (Neg-Trace)
[2024-07-07 11:22] LABS: Alanine Aminotransferase 19 U/L (0-31); Albumin Level 4.1 g/dL (3.5-5.0); Alkaline Phosphatase 79 U/L (39-117); Anion Gap 10 (12-20); Aspartate Amino Transferase 25 U/L (5-31); Bilirubin Total 0.6 mg/dL (0.0-1.0); Blood Urea Nitrogen 19 mg/dL (9-16); Calcium 9.6 mg/dL (8.4-10.2); Carbon Dioxide 29 mmol/L (22-29); Chloride 106 mmol/L (96-108); Cholesterol 146 mg/dL (<200); Estimated Glomerular Filt Rate > 60; Glucose Fasting 94 mg/dL (60-99); HDL Cholesterol 60 mg/dL (>40); LDL Cholesterol Calculated 74 mg/dL (<100); Potassium 3.5 mmol/L (3.3-5.1); Sodium 141 mmol/L (135-145); Total Protein 6.2 g/dL (6.5-8.0); Triglycerides 61 mg/dL (<150); Vitamin D 25-OH Total 87.3 ng/mL (>30)
[2024-07-07 11:25] LABS: Bacteria Urine 4+ (None Seen); Hyaline Casts Urine 0-2 /LPF (0-2); RBC Urine 0-2 /HPF (0-2); Squamous Epithelial Cell Urine 0-2 /HPF (0-2); UACC Culture Trigger YES
== END 2024-07-07 06:14 | disposition home or self-care (01) ==
LOC: HO.HMGCLDS 06:13
PROVIDERS: PCP Nurse Practitioner Family; Visit Provider Nurse Practitioner Family
DX: Z78.0 Asymptomatic menopausal state (principal); I10 Essential (primary) hypertension
CPT/HCPCS: 36415; 80053; 80061; 81001; 82306; 84443; 85025; 87086; 87088; 87186

== ENCOUNTER 2024-09-19 12:57 | Outpatient (AMB) | payer MEDICARE, SELFPAY ==
[2024-09-19 13:02] VITALS: BP 110/48; PULSE 66; TEMP 36.7; O2SAT 95; BMI 27.0
--- NOTE | 2024-09-19 13:02 | MHC.OFFWIV ---
Intake Vital Signs 09/19/24 13:02 Height 4 ft 10 in Weight 129 lb 6 oz BMI 27.0 BP 110/48 L Blood Pressure Location Rt brachial Position Sitting Pulse 66 Pulse Source Pulse Oximeter Temp 98.0 F Temp Source Oral Pulse Oximetry (%) 95 Oxygen Delivery Method Room Air Intake Visit Reasons: EP Pain in LT hand Intake Note: Patient present with left hnd pain times more than a week only the palm of the hand Patient Tobacco Use Status: Never used Tobacco Ropewalk Rope Maker Required: No Post menopausal: Yes Allergies Sulfa (Sulfonamide Antibiotics) Allergy (Unknown, Verified 09/19/24 13:06) Redness of Skin HPI HPI Comments History of Present Illness Details History of Present Illness - The patient is a 79-year-old female presenting with left hand pain. - The pain is localized to a specific spot on the left hand and is described as sharp and stabbing, particularly severe at night. - The patient is unsure of any specific inciting event but suspects it might be related to cleaning activities. - There is no associated numbness, tingling, or radiation of pain to the wrist or arm. - Extra strength Tylenol provides temporary relief for a couple of hours. - She denies trauma or falls. - She is right hand dominant. - She denies arm pain or shoulder pain. Physical Exam General: Cooperative, healthy appearing, comfortable, no acute distress and well developed Orientation: Patient oriented x3 Respiratory: Normal respiratory effort and able to speak in complete sentences. Clear to auscultation bilaterally. No w/r/r noted. Cardiovascular: Regular rate and rhythm. Normal S1 and S2. No m/r/g noted. Skin: No rashes or lesions noted Neuro: Sensation is intact on the UE. Extremities: Normal to inspection, Pulses are good. FROM of the left wrist and digits on the left hand. Hand field sales consultant is strong and intact. TTP of the left thenar eminence and hypothenar region on the left hand. TTP at the base of the thumb. No TTP of the medial or later wrist. Negative Tinel's test and Phalen's test. Patient was informed and verbally consented to the use of an ambient scribe for clinic note documentation during this visit. [facility] Medical History (Updated 03/21/24 @ 08:49 by Lizette Walker PA-C) Bunion Carpal tunnel syndrome Skin cancer Breast cancer GERD (gastroesophageal reflux disease) Elevated cholesterol (atherosclerosis) HTN (hypertension) Surgical History History of eyelid surgery History of bunionectomy History of carpal tunnel repair H/O carotid endarterectomy Hx of lumpectomy Hx of appendectomy History of suburethral sling procedure Family History Mother Lung cancer Father Suicide Mental health problem Social History Housing: Condominium Are you a primary resident care associate to a significant other at home: No Do you presently have visiting nurse or other home services: No Alcohol intake: current Alcohol intake frequency: a few times a month Alcohol type: wine Patient Tobacco Use Status: Never used Tobacco e-Cigarette/Vaping Use: Never Used service: No Current occupational status: retired Current occupational exposures/hazards: No Cognitive needs: No Hearing needs: No Vision needs: Yes Review of Systems Const All systems reviewed & are unremarkable except as noted in HPI and below Physical Exam Vital Signs: Last Vital Signs Temp 98.0 F 09/19/24 13:02 Pulse 66 09/19/24 13:02 BP 110/48 L 09/19/24 13:02 Pulse Ox 95 09/19/24 13:02 Oxygen Delivery Method Room Air 09/19/24 13:02 BMI result Body Mass Index 27.0 Results Reviewed Results Reviewed: Reviewed her hand x-ray in the office today, no fracture Assessment & Plan Assessment & Plan (1) Left hand pain: Code(s): M79.642 - Pain in left hand Plan Most likely tendonitis vs arthritis vs carpal tunnel vs OA vs ostepenia Plan - Order an x-ray of the left hand - Continue with extra strength Tylenol for pain management as needed. - will call her with the results - can f/u with ortho hand or arthritis treatment center - activities as tolerated Orders: Orders XR hand LT min 3V Today M79.642 - Pain in left hand Medications: New naproxen 500 mg PO Q12H PRN 20 tabs 0RF pain 7 days Coding Level of Care Code Est Pt Level 4 (09261) Diagnoses Left hand pain M79.642
--- OUTSIDE RECORDS SUMMARY | 2024-09-19 13:23 | XMS_ITS | Patient Health Record ---
Author Organization [facility] sundepe Ku Address [address] [facility] [place] [address] Care Team Providers Care Engine Lathe Tender Name Role Phone Alexsandra Guerra MD Primary Care Provider Unavailab katja Ashley Gandara Unavailable [phone] Allergies Allergen (clinical drug ingredient) Drug/Non Drug Allergy documented on EMR Reaction Allergy Type Onset Date Status sulfamethoxazole / trimethoprim Bactrim blood pressure raises, swelling Drug Allergy Active sulfa blood pressure raises, swelling Drug Allergy Active Reason For Referral No Information Medications Medication SIG (Take, Route, Frequency, Duration) Notes Start Date End Date Status Vitamin D 1000 IU QD Ac tive Aspirin 81 MG QD Active Multivitamins Active amLODIPine Besylate 5 MG QD Active Simvastatin 20 MG QD Ac tive [place] 3 1000 MG TID Acti ve Calcium 1200 MG BID Acti ve oxyBUTYnin Chloride 5 MG as directed Orally Active Problems Problem Type SNOMED Code ICD Code Onset Dates Problem Status W/U Status Risk Notes Problem Arthralgia (34877149) Arthralgia (719.40) Active confirmed Problem Disorder of joint of ankle and/or foot (327450849) Arthritis - Degenerative (719.97) Active confirmed Problem Calcaneal spur (46260608) Calcaneal spur (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.73) Active confirmed Problem Pain in limb (61192033) Pain in Limb (729.5) Active confirmed Problem Plantar fasciitis (300560799) Plantar Fasciitis (728.71) Active confirmed Plan Of Treatment Pending Test Test Name Order Date X ray : Foot, right 3V 11/25/2011 X ray : Ankle, right 3V 11/12/2010 Insurance Providers Payer Name Payer Address Payer Phone Subscriber Number Group Number Insured Name Patient Relationship to Insured Coverage Start Date Coverage End Date [employer] [address] [place] [address] [id number] Deepa Knight Self - patient is the insured Medical (General) History Medical History History ICD Code hypertension atherosclerotic cardiovascular disease ( ASCVD) hypercholesterolemia measles chicken pox joint implants/screws Surgical History Surgery Date(Month/Year) carotid endarterectomy 2009 appendectomy 1991 eye surgery 1995 bunionectomy 1994
--- OUTSIDE RECORDS SUMMARY | 2024-09-19 13:23 | XMS_ITS | Patient Health Record ---
Author Organization [facility] Address [address] [place] [id number] Care Team Providers Care Picc Nurse Name Role Phone Georgie Zavaleta NP Primary Care Provider Aman Yan [phone] Allergies Allergen (clinical drug ingredient) Drug/Non Drug Allergy documented on EMR Reaction Allergy Type Onset Date Status Sulfa Unknown Drug Allergy Active sulfamethoxazole / trimethoprim Bactrim Unknown Drug Allergy Active Reason For Referral No Information Medications Medication SIG (Take, Route, Frequency, Duration) Notes Start Date End Date Status oxyBUTYnin Chloride 5 MG 1 tablet Orally Once a day Active Calcium 600 MG 1 tablet with meals Orally Once a day Active Multi Vitamin/Minerals Orally Active Vitamin D 1000 UNIT 1 tablet Orally Once a day Active Aspir-81 81 MG 1 tablet Orally Once a day Active Simvastatin 20 MG 1 tablet in the even ing Orally Once a day Active Atenolol 25 MG 1 tablet Orally Once a day Active amLODIPine Besylate 5 MG 1 tablet Orally Once a day Active Vitamin B-1 100 MG 1 tablet Orally Once a day Active Gilbert 3 1000 MG 1 capsule Orally Once a day Active Omeprazole 20 MG 1 capsule Orally Once a day Active Vagifem 10 MCG 1 tablet Vaginal Two times a Week Active Immunizations Vaccine Route Administration Date Status Comme nts Flu vaccine no Preserv 3 and > Unknown 01/24/2014 Admin istered Problems Problem Type SNOMED Code ICD Code Onset Dates Problem Status W/U Status Risk Notes Problem Colon cancer screening (452034570) Colon cancer screening (V76.51) Active confirmed Problem Gastroesophageal reflux disease (347123835) GERD (gastroesophag eal reflux disease) (530.81) Active confirmed Problem 314678906 Encounter for screening colonoscopy (Z12.11) Active confirmed Plan Of Treatment Future Test Test Name Order Date UPPER GI ENDOSCOPY 11/15/2014 COLONOSCOPY 11/15/2014 Insurance Providers Payer Name Payer Address Payer Phone Subscriber Number Group Number Insured Name Patient Relationship to Insured Coverage Start Date Coverage End Date MED[place] [address] [place] [address] [phone] [id number] DAVIDE SALDAÑA Self - patient is the insured [employer] ATT[employer] CLAIMS [address] [place] [address] [id number] DAVIDE SALDAÑA Self - patient is the insured Medical (General) History Medical History History ICD Code Negative colonoscopy 10-10-2004--divertic ulosis and internal hemorrhoids Denies ND,DM,CVA,Lung disease,renal dise ase Hypertension GERD Overactive bladder Hyperlipidemia Surgical History Surgery Date(Month/Year) Bunions Pilonidal cyst Appendectomy Carotid endarterectomy on the left 12/11 Bladder suspenion 2004 Eye surgery--eyelids
== END 2024-09-19 14:39 | disposition home or self-care (01) ==
PROVIDERS: PCP Nurse Practitioner Family; Visit Provider Physician Assistant Medical
DX: M79.642 Pain in left hand (principal)

== ENCOUNTER 2024-09-19 12:57 | Outpatient (REF) | payer MEDICARE, SELFPAY ==
--- NOTE | ~2024-09-19 | XR_ITS ---
EXAMINATION: XR HAND, LEFT CLINICAL INFORMATION: M79.642 - Pain in left hand COMPARISON: None available. TECHNIQUE: PA, lateral, and oblique views of the left hand. FINDINGS: There is osteopenia. There is no fracture, dislocation, or suspicious bone lesion. Moderate to severe osteoarthrosis noted at the STT joints and first CMC joint. Joint spaces are otherwise grossly normal. There is no discrete soft tissue abnormality. XR/XR hand LT min 3V IMPRESSION: 1. Osteopenia. 2. No acute findings of the left hand. 3. Moderate to severe osteoarthrosis involving the STT joints and first CMC joint Electronically signed by: Des Epps MD 09/19/2024 03:20 PM EDT
== END 2024-09-19 12:58 | disposition home or self-care (01) ==
LOC: HO.HMGCX 12:57
PROVIDERS: PCP Nurse Practitioner Family; Visit Provider Physician Assistant Medical
DX: M79.642 Pain in left hand (principal)
CPT/HCPCS: 73130; 99212

== ENCOUNTER → 2024-09-19 14:22 | Outpatient (BNV) | payer MEDICARE, SELFPAY | PROVIDERS: PCP Nurse Practitioner Family; Visit Provider Radiology Diagnostic Radiology | DX: M18.12 Unilateral primary osteoarthritis of first carpometacarpal joint, left hand (principal); M19.042 Primary osteoarthritis, left hand | CPT/HCPCS: 73130 ==

== ENCOUNTER 2024-12-12 08:39 | Outpatient (AMB) | payer MEDICARE, SELFPAY ==
--- OUTSIDE RECORDS SUMMARY | 2024-12-12 09:07 | XMS_ITS | Patient Health Record ---
Author Organization [facility] Address [address] [place] [address] Care Team Providers Care Tube Lancer Name Role Phone Georgie Zavaleta NP Primary Care Provider Aman Yan [phone] Allergies Allergen (clinical drug ingredient) Drug/Non Drug [...] 1 tablet Orally Once a day Active [place] 3 1000 MG 1 capsule Orally Once [...] Status Risk Notes Problem Colon cancer screening (198189771) Colon cancer screening (V76.51) Active confirmed Problem Gastroesophageal reflux disease (819815958) GERD (gastroesophag eal reflux disease) (530.81) Active confirmed Problem 226686717 Encounter for screening colonoscopy (Z12.11) Active confirmed Plan Of Treatment Future Test Test Name Order Date UPPER GI ENDOSCOPY 11/15/2014 COLONOSCOPY 11/15/2014 Insurance Providers Payer Name Payer Address Payer Phone Subscriber Number Group Number Insured Name Patient Relationship to Insured Coverage Start Date Coverage End Date [place] [address] [place] [address] [phone] [id number] DAVIDE SALDAÑA Self - patient is the insured MED[employer] ATT[employer] CLAIMS [address] [place] [address] [id number] DAVIDE SALDAÑA Self - patient is the insured Medical (General) History Medical History History ICD Code Negative colonoscopy 10-10-2004--divertic ulosis and internal hemorrhoids Denies [place],DM,CVA,Lung disease,renal dise ase Hypertension GERD Overactive bladder Hyperlipidemia Surgical History Surgery Date(Month/Year) Bunions Pilonidal cyst Appendectomy Carotid endarterectomy on the left 12/11 Bladder suspenion 2004 Eye surgery--eyelids
--- OUTSIDE RECORDS SUMMARY | 2024-12-12 09:07 | XMS_ITS | Patient Health Record ---
Author Organization [facility] [place] Address [address] [place] [address] Care Team Providers Care Oral Hygienist Name Role Phone Alexsandra Guerra MD Primary Care Provider Unavailab katja Ashley Gandara Unavailable [phone] Allergies Allergen (clinical drug ingredient) Drug/Non Drug [...] Active Simvastatin 20 MG QD Ac tive [place] 3 1000 MG TID Acti ve Calcium 1200 MG BID Acti ve oxyBUTYnin Chloride 5 MG as directed Orally Active Problems Problem Type SNOMED Code ICD Code Onset Dates Problem Status W/U Status Risk Notes Problem Arthralgia (79788707) Arthralgia (719.40) Active confirmed Problem Disorder of joint of ankle and/or foot (480230013) Arthritis - Degenerative (719.97) Active confirmed Problem Calcaneal spur (39428266) Calcaneal spur (726.73) Active confirmed Problem Pain in limb (52088779) Pain in Limb (729.5) Active confirmed Problem Plantar fasciitis (556584022) Plantar Fasciitis (728.71) Active confirmed Plan Of Treatment Pending Test Test Name Order Date X ray : Foot, right 3V 11/25/2011 X ray : Ankle, right 3V 11/12/2010 Insurance Providers Payer Name Payer Address Payer Phone Subscriber Number Group Number Insured Name Patient Relationship to Insured Coverage Start Date Coverage End Date Olivia [employer] [address] [place] [address] [id number] Deepa Knight Self - patient is the insured Medical (General) History Medical History History ICD Code hypertension atherosclerotic cardiovascular disease ( ASCVD) hypercholesterolemia measles chicken pox joint implants/screws Surgical History Surgery Date(Month/Year) carotid endarterectomy 2009 appendectomy 1991 eye surgery 1995 bunionectomy 1994
[2024-12-12 09:12] VITALS: BP 124/78; PULSE 59; RESP 16; TEMP 36.8; O2SAT 96; BMI 27.2
--- NOTE | 2024-12-12 09:12 | AM.OFFVISMDC ---
Intake Vital Signs 12/12/24 09:12 Height 4 ft 10 in Weight 130 lb BMI 27.2 BP 124/78 Blood Pressure Location Lt brachial Position Sitting Respiration 16 Pulse 59 Pulse Source Pulse Oximeter Temp 98.3 F Temp Source Oral Pulse Oximetry (%) 96 Oxygen Delivery Method Room Air Intake Visit Reasons: [facility] G039 Critical Care Nurse Practitioner Required: No Accompanied by: Self / Same As Patient Allergies Sulfa (Sulfonamide Antibiotics) Allergy (Unknown, Verified 12/12/24 09:15) Redness of Skin HPI SWV G039 HPI Details here for awv: PPP and CCC in scan pile HPI Comments History of Present Illness Details dyslipidemia: on a statin, will recheck labs. denies any cp, sob, n/v, dizziness, MENDOZA, blurred vision PFSH Medical History Bunion Carpal tunnel syndrome Skin cancer Breast cancer GERD (gastroesophageal reflux disease) Elevated cholesterol (atherosclerosis) HTN (hypertension) Surgical History History of eyelid surgery History of bunionectomy History of carpal tunnel repair H/O carotid endarterectomy Hx of lumpectomy Hx of appendectomy History of suburethral sling procedure Family History Mother Lung cancer Father Suicide Mental health problem Social History [facility] Are you a primary career and guidance counselor to a significant other at home: No Do you presently have visiting nurse or other home services: No Alcohol intake: current Alcohol intake frequency: a few times a month Alcohol type: wine Patient Tobacco Use Status: Never used Tobacco e-Cigarette/Vaping Use: Never Used service: No Current occupational status: retired Current occupational exposures/hazards: No Cognitive needs: No Hearing needs: No Vision needs: Yes Questionnaire Medicare Wellness Checkup [age] What gender do you identify with?: female During the past 4 weeks, how much have you been bothered by emotional problems such as feeling anxious, depressed, irritable, sad or downhearted, and blue?: not at all During the past 4 weeks, has your physical & emotional health limited your social activities with family, friends, neighbors, or groups?: not at all During the past 4 weeks, how much bodily pain have you generally had?: very mild pain During the past 4 weeks, was someone available to help you if you needed & wanted help?: yes, as much as I wanted During the past 4 weeks, what was the hardest physical activity you could do for at least 2 minutes?: very heavy Can you get to places out of walking distance without help? (For eg., can you travel alone on buses, taxis or drive your car?): Yes Can you go shopping for groceries or clothes without someone's help?: Yes Can you prepare your own meals?: Yes Can you do your housework without help?: Yes Because of any health problems, do you need the help of another person with your personal care needs such as eating, bathing, dressing or getting around the house?: No Can you handle your own money without help?: Yes During the past 4 weeks, how would you rate your health in general?: very good During the past 4 weeks how have things been going for you?: pretty well Are you having difficulties driving your car?: no Do you always fasten your seat belt when you are in a car?: yes, usually During past 4 weeks, have you been bothered by the following: never: Falling or dizzy when standing up, Sexual problems?, Trouble eating well?, Teeth or denture problems?, Problems using the telephone? and Tiredness or fatigue? Have you fallen 2 or more times in the past year?: No Are you afraid of falling?: No Are you a smoker?: no During the past 4 weeks, how many drinks of wine, beer, or other alcoholic beverages did you have?: 1 drink or less per week Do you exercise for about 20 minutes 3 or more times a week?: yes, most of the time Have you been given information to help with the following?: yes: Hazards in your house that might hurt you? and yes: Keeping track of your medications? How often do you have trouble taking medicines the way you have been told to take them?: I always take medicine as prescribed How confident are you that you can control & manage most of your health problems?: very confident What is your race?: White Mini Mental State Exam (MMSE) Orientation What is the (year) (season) (date) (day) (month)?: year, season, date, day and month Where are we (state) (county) (town or city) (hospital) (floor)?: state, county, town or city, hospital/clinic and floor Registration Name of 3 unrelated objects clearly and slowly, then ask patient to repeat all 3 of them. (1st repeat determines score. Make sure they can repeat all three): object 1, object 2 and object 3 Attention & Calculation (CHOOSE ONE) Spell WORLD backwards (DLROW): 5 letters Recall Ask patient to repeat the 3 items from question #3.: object 1, object 2 and object 3 Language Show patient a wristwatch & ask what it is. Repeat for pencil.: watch and pencil Ask the patient to repeat the phrase 'No ifs, ands, or buts' after you.: correct Ask the patient to 'take a piece of paper with their right hand' 'fold paper in half' 'place paper on floor': take paper in right hand, fold paper in half and place paper on floor Print the sentence 'CLOSE YOUR EYES' on a piece. If patient actually closes eyes then score.: followed written direction Give patient a blank piece of paper & ask to write a sentence. Score if it contains a noun & verb.: sentence contains subject and verb Ask patient to copy figure of intersecting pentagons exactly. Score if all 10 angles & 2 intersects are included.: all 10 angles present & 2 are intersected Score Score: 30 Activity of Daily Living Bathing - sponge bath, tub bath or shower: receives no assistance (gets in/out by self, if usual bathing means Dressing - getting clothes from closets & drawers, including inner/outer garments & fasteners.: gets clothes & gets completely dressed without help Toileting - going to the 'toilet room' for urine/bowel elimination & cleaning self/arranging clothes: goes to toilet room, cleans self, arranges clothes without help Transfer: moves in & out of bed and chair without help (may use support object) Continence: controls urination/bowel movements completely by self Feeding: feeds self without help Total Score: 0 Information obtained from: patient Using telephone: independent Traveling: independent Shopping: independent Preparing meals: independent Housework: independent Taking medicine: independent Managing money: independent PHQ-9 Over the last 2 weeks, how often have you been bothered by any of the following problems? 1. Little interest or pleasure in doing things: not at all 2. Feeling down, depressed, or hopeless: not at all 3. Trouble falling or staying asleep, or sleeping too much: not at all 4. Feeling tired or having little energy: not at all 5. Poor appetite or overeating: not at all 6. Feeling bad about yourself - or that you are a failure or have let yourself or your family down: not at all 7. Trouble concentrating on things, such as reading the newspaper or watching television: not at all 8. Moving or speaking so slowly that other people could have noticed. Or the opposite - being so fidgety or restless that you have been moving around a lot more than usual: not at all 9. Thoughts that you would be better off or of hurting yourself in some way: not at all Total score: 0 Depression Screening Interpretation: Negative Depression Screening Done: Yes 19741 - PHQ-9 Billing: Yes Source: Developed by Drs. Aman Burns, Leann Graves, Rafael Bae and colleagues, with an educational jose guadalupe from [place]. [employer]. cn. Physical Exam Vital Signs: Last Vital Signs Temp 98.3 F 12/12/24 09:12 Pulse 59 12/12/24 09:12 Resp 16 12/12/24 09:12 BP 124/78 12/12/24 09:12 Pulse Ox 96 12/12/24 09:12 Oxygen Delivery Method Room Air 12/12/24 09:12 BMI result Body Mass Index 27.2 Resp Effort & Inspection: normal respiratory effort Auscultation: clear to auscultation bilaterally Cardio Rate: regular rate Rhythm: regular rhythm Heart sounds: S1 normal heart sound present, S2 normal heart sound present and no murmurs Neuro Other: passed whisper test, able to tandem walk, able to stand from seated position, neg rhomberg Assessment & Plan Assessment & Plan (1) Need for hepatitis B screening test: Code(s): Z11.59 - Encounter for screening for other viral diseases (2) Postmenopausal: Code(s): Z78.0 - Asymptomatic menopausal state (3) Dyslipidemia: Code(s): E78.5 - Hyperlipidemia, unspecified (4) Encounter for annual wellness visit (AWV) in Medicare patient: Code(s): Z00.00 - Encounter for general adult medical examination without abnormal findings Plan . Orders: Orders Complete Blood Count Auto Diff Today E78.5 - Hyperlipidemia, unspecified, Z78.0 - Asymptomatic menopausal state Comprehensive Questa. Panel Fast Today E78.5 - Hyperlipidemia, unspecified, Z78.0 - Asymptomatic menopausal state TSH reflex Free T4 Today E78.5 - Hyperlipidemia, unspecified, Z78.0 - Asymptomatic menopausal state UA CC w/rflx Micro + Cult Today E78.5 - Hyperlipidemia, unspecified, Z78.0 - Asymptomatic menopausal state Vitamin D 25-OH Total Today E78.5 - Hyperlipidemia, unspecified, Z78.0 - Asymptomatic menopausal state Hepatitis A,B,C Profile Today Z11.59 - Encounter for screening for other viral diseases Lipid Panel Today E78.5 - Hyperlipidemia, unspecified, Z78.0 - Asymptomatic menopausal state Quality Reporting (2020) Depression/Bipolar (159/160/161/177) PHQ-9: Total score: 0 Coding Level of Care Code Medicare First (G0438) Est Pt Level 3 (33661) Diagnoses Need for hepatitis B screening test Z11.59 Postmenopausal Z78.0 Dyslipidemia E78.5 Encounter for annual wellness visit (AWV) in Medicare patient Z00.00 Additional Codes PHQ-9 - 60555 - PHQ-9 Billing: Yes ([id number]) Advance Care Planning Forms completed: Health Care Proxy, MOLST and Living will (this is done, according to pt)
== END 2024-12-12 09:56 | disposition home or self-care (01) ==
LOC: HO.HMCC 08:40
PROVIDERS: PCP Nurse Practitioner Family; Visit Provider Nurse Practitioner Family
DX: Z00.00 Encounter for general adult medical examination without abnormal findings (principal); E78.5 Hyperlipidemia, unspecified; Z11.59 Encounter for screening for other viral diseases; Z78.0 Asymptomatic menopausal state

== ENCOUNTER → 2024-12-12 08:39 | Outpatient (BNVA) | payer MEDICARE, SELFPAY | PROVIDERS: PCP Nurse Practitioner Family; Visit Provider Nurse Practitioner Family | DX: Z00.00 Encounter for general adult medical examination without abnormal findings (principal); E78.5 Hyperlipidemia, unspecified; Z78.0 Asymptomatic menopausal state; Z79.899 Other long term (current) drug therapy | CPT/HCPCS: 96127 ==

== ENCOUNTER 2025-01-24 07:55 | Outpatient (AMB) | payer MEDICARE, SELFPAY ==
--- OUTSIDE RECORDS SUMMARY | 2025-01-24 07:59 | XMS_ITS | Clinical Summary ---
Author Organization [facility] Address [address] [place] [address] Phone Care Team Providers Care Oil Well Service Operator Name Role Phone Suad Kim ENGRAVER LETTER Unavailable [phone] Unknown, Unknown Primary Care Provider Karlo gomez Allergies Active Allergy Reactions Criticality Noted Date Comments Sulfamethoxazole-Trimetho prim Swelling 07/28/2017 Sulfa (Sulfonamide Antibiotics) 07/16/2020 Other reaction(s): body turned red BP increased swelling in hands and face Medications cholecalciferol (VITAMIN D3) 1,000 unit tablet Take 1 tablet by mouth daily. Active calcium carbonate (OS-OLGA) 1,500 mg (600 mg elemental) tablet ONE DAILY Orally Active multivitamin per tablet ONE DAILY Orally Active aspirin 81 MG EC tablet Take 81 mg by mouth daily. Active timolol (TIMOPTIC) 0.5 % ophthalmic solution INT 1 GTT IN OD QAM 5 9 Active L.acid-B.bifidum-B. animal-FOS 25 billion cell -100 mg Cap Take 1 capsule by mouth daily. Active anastrozole (ARIMIDEX) 1 mg tablet 1 mg daily. 1 Active atenolol (TENORMIN) 25 MG tabletIndications:E ssential hypertension Take 1 tablet (25 mg total) by mouth daily. 90 tablet 4 Active amLODIPine (NORVASC) 5 MG tabletIndications:E ssential hypertension Take 1 tablet (5 mg total) by mouth daily. 90 tablet 4 Active omeprazole (PRILOSEC) 20 MG capsuleIndications: GERD without esophagitis Take 1 capsule (20 mg total) by mouth daily. 90 capsule 4 Active simvastatin (ZOCOR) 20 MG tabletIndications:M ixed hyperlipidemia Take 1 tablet (20 mg total) by mouth nightly at bedtime. 90 tablet 4 Active Active Problems Problem Noted Date Diagnosed Date Chronic midline low back pain without sciatica 0 05/19/2022 Assessment & Plan (05/19/2022 10:08 AM EST): The exam is negative for signs of sciatica. This appears to be a lumbosacral sprain. She does have a history of breast cancer so there is a low threshold to get a x- ray of the lower back however was not ordered today because of the intermittent quality of the pain and not steady pain that you would experience with metastatic cancer. Patient wishes to go to physical therapy and this is a good idea, [facility] requested [facility]. After 68 weeks if still feeling pain consider obtaining an x-ray and further management with physiatry. When applying heat recommended to the patient on 20 minutes off 10 minutes and then repeat. Did not set the heat onto the lower back for hours at a time. On and off Aleve can be taken 220 mg twice daily as needed. 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 Powell- Resolved 2018 Essential hypertension 07/28/2017 Gastroesophageal reflux disease without esophagi tis 07/28/2017 History of carotid artery disease 07/28/2017 Mixed hyperlipidemia 07/28/2017 Osteopenia 07/28/2017 Overactive bladder 07/28/2017 Leukocytosis 07/28/2017 Immunizations Immunization Administration Dates Next Due COVID-19 (Pre-01/05) Lamar Vaccine, rS-Ad26, P F 05/26/2020 Influenza High-Dose Quadrivalent Preservative Fr ee IM 01/16/2022,01/10/2021 Influenza High-Dose Trivalent Preservative Free IM 01/01/2018,01/17/2016 Influenza Quadrivalent Adjuvanted Preservative F ree IM 01/02/2020 Influenza Quadrivalent Preservative Free IM 12/15 Influenza Trivalent Adjuvanted Preservative free IM 12/22/2018,01/14/2017 Influenza, whole 01/03/2011 Pneumococcal conjugate PCV13 06/21/2014 Pneumococcal polysaccharide PPSV23 07/09/2016 Tdap 01/11/2020 Zoster live 11/07/2011 Family History Medical History Relation Comments Lung cancer Brother 1 Drug use disorder Brother 2 Migraines Daughter Nephrolithiasis Daughter Suicide Father Lung cancer Mother smoker No Known Problems Son Relation Status Comments Brother 1 (Age 60) smoker Brother 2 (Age 37) Daughter Alive Father Mother (Age 54) Sister (Age 77) Son Alive Social History Tobacco Use Types Packs/Day Years Used Date Smoking Tobacco: Former Cigarettes 2.5 34.3 1 960 - 06/29/1993 Smokeless Tobacco: Never Alcohol Use Standard Drinks/Week Comments Yes 1 (1 standard drink = 0.6 oz pur e alcohol) 1 drink/week Education Answer Date Recorded Are you interested in more education? Not on geoffrey e 07/11/2022 Are you concerned about learning? Not on file 07/11/2022 No 07/11/2022 No 07/11/2022 Digital Access Answer Date Recorded No 08/11/2022 No 08/11/2022 Reliable internet access at home? Not on file 08/11/2022 Device with a working camera? Not on file Intimate Partner Violence Answer Date R ecorded Denied Basic Needs Not on file 08/26/2022 In the past 12 months have y ou been in a relationship with a person who hurts, threatens, or tries to control you? No 08/26/2022 Worried food would run out Not on file 08/26 In the past 12 months have y ou been in a relationship with a person who hurts, threatens, or tries to control you? No 08/26/2022 Comments No Sex and Gender Information Value Date Recorded Sex Assigned at Female 05/19/2020 9:52 PM EST Legal Sex Female 10:06 PM EDT Gender Identity Female 05/19/2020 9:52 PM EST Sexual Orientation Straight 05/19/2020 9: 52 PM EST Last Filed Vital Signs Vital Sign Reading Time Taken Comments Blood Pressure 128/64 11/26/2022 2:55 PM EDT Pulse 61 11/26/2022 2:55 PM EDT Temperature 36.3 C (97.4 F) 05/19/2022 9:27 AM EST Respiratory Rate 16 11/26/2022 2:55 PM EDT Oxygen Saturation 97% 11/26/2022 2:55 PM EDT Inhaled Oxygen Concentration - - Weight 59.8 kg (131 lb 12.8 oz) 11/26/2022 2:55 PM EDT Height 148 cm (4' 10.27 ) 11/26/2022 2:55 PM EDT Body Mass Index 27.29 11/26/2022 2:55 PM EDT Plan of Treatment Health Maintenance Due Date Last Done Comments SMOKING Hx and SMOKELESS TOBACCO SCREENING 1958 ZOSTER VACCINES (1 of 2) 01/02/2012 11/07/2011 FOLLOW UP BONE DENSITY TESTING 12/17/2020 12/17/2018, 07/09/2016 RSV VACCINE (1 - 1-dose 75+ series) 2022 BLOOD PRESSURE 05/27/2023 11/26/2022 DEPRESSION SCREENING 08/27/2023 08/26/2022 INFLUENZA VACCINE (#1) 2024 , 01/10/2021, 01/10/2021, Additional history exists COVID-19 VACCINE ( - season) 2024 02/05/2021, 05/26/2020 LIPID PANEL 12/20/2028 12/21/2023, 08/14, 09/10/2021, Additional history exists Adult Td,Tdap Booster 01/10/2030 01/11/2020 PNEUMOCOCCAL VACCINES (50+ years) Completed 07/09/2016, 06/21/2014 OSTEOPOROSIS SCREENING INITIAL (ONE-TIME) Completed 12/17/2018, 07/09/2016 HEPATITIS C SCREENING Completed 08/22/2019 , 08/22/2019, 08/22/2019 HEPATITIS A VACCINES Aged Out No long er eligible based on patient's age to complete this topic HIB VACCINES Aged Out No longer eligi ble based on patient's age to complete this topic MENINGOCOCCAL VACCINES (ACWY) Aged Out No longer eligible based on patient's age to complete this topic MENINGOCOCCAL VACCINES (B) Aged Out N o longer eligible based on patient's age to complete this topic Medical Devices Not on file Procedures Procedure Name Priority Date/Time Associated Diagnosis Comments LIPID PANEL Routine 08/27/2022 2:10 PM EDT Mixed hyperlipidemia HEPATITIS C ANTIBODY, QUALITATIVE Routine 08/22/2019 10:49 AM EDT Need for hepatitis C screening test BD DXA SCREENING Routine 12/17/2018 from Last 3 Months or Most Recently Relevant to Health Maintenance Results * (ABNORMAL) Lipid panel (08/27/2022 2:10 PM EDT) HDL 60 mg/dL [facility] Comment: Interpretation <40 mg/dL: Low HDL cholesterol (major risk factor for CHD) Greater than or equal to 60 mg/dL: High HDL cholesterol ( negative risk factor for CHD) HDL - cholesterol is affected by a number of factors, e.g. smoking, excerise, hormones, sex and age. CHOLESTEROL 158 0 - 240 mg/dL [facility] TRIGLYCERIDES 119 30 - 160 mg/dL [facility] LDL 74 50 - 129 mg/dL [facility] Comment: LDL levels in terms of risk for coronary heart disease: <100 mg/dL: Optimal 100-129 mg/dL: Near or above optimal 130-159 mg/dL: Borderline high 160-189 mg/dL: High >190 mg/dL: Very High CARDIAC RISK RATIO 2.6(L) 3.3 - 4.4 [facility] Blood 08/27/2022 2:10 PM EDT 08/27/2022 2:13 PM EDT us Georgie Zavaleta NP LAB BLOOD BKR ORDERABLES Final Result [facility] [address] [place] [address] * Hepatitis C antibody, qualitative (08/22/2019 10:49 AM EDT) Blood us Georgie L [place] ENGRAVER LETTER LAB BLOOD BKR ORDERABLES Final Result [facility] [address] [place] [address] * DXA Screening (12/17/2018) Anatomical Region Laterality Modality Bone Density Bone Density us Georgie Zavaleta NP IMG BD BONE DENSITY DEXA Edited Result - Final from Last 3 Months or Most Recently Relevant to Health Maintenance Insurance MEDICARE PART A & B Member Subscriber Plan / Payer (Ef fective 2012-Present) Name:Deepa Beckett Member ID:[id number] Relation to Subscriber:Self Name:Deepa Beckett Subscriber ID:[id number] Payer ID:[id number] Group ID:Not on file Type:Medicare Address: [facility] [employer] [facility] [employer] [facility] [address] [facility] [place] [address] [employer] MEDEX SUPPLEMENT MEDICARE PART A & B [employer] MEDEX SUPPLEMENT MEDICARE PART A & B [employer] MEDEX SUPPLEMENT MEDICARE PART A & B Member Subscriber Plan / Payer (Ef fective 2012-Present) Name:Deepa Beckett Member ID:[id number] Relation to Subscriber:Self Name:Deepa Beckett Subscriber ID:[id number] Payer ID:[id number] Group ID:Not on file Type:Medicare Address: [employer] [id number] [employer] CROSS MEDEX SUPPLEMENT MEDICARE PART A & B [employer] MEDEX SUPPLEMENT MEDICARE PART A & B [employer] MEDEX SUPPLEMENT MEDICARE PART A & B [employer] MEDEX SUPPLEMENT MEDICARE PART A & B [employer] MEDEX SUPPLEMENT MEDICARE PART A & B [employer] MEDEX SUPPLEMENT Care Teams Oil Well Service Operator Relationship Specialty Start Date End Date Unknown, Unknown, PCP - General 06/01/23 Suad Kim NP [address] [place] [id number] Gynecology 10/06/19 Additional Source Comments The information contained in this document represents components of the legal health record. It is not the complete legal health record.[facility]
--- OUTSIDE RECORDS SUMMARY | 2025-01-24 07:59 | XMS_ITS | Patient Health Record ---
Author Organization [facility] Address [address] [place] [address] Care Team Providers Care Executive Assistant To General Counsel Name Role Phone JARAD TELLEZ Primary Care Provider Aman Yan [phone] Allergies Allergen (clinical drug ingredient) Drug/Non Drug [...] 1 tablet Orally Once a day Active [place] 3 1000 MG 1 capsule Orally Once [...] Status Risk Notes Problem Colon cancer screening (040994752) Colon cancer screening (V76.51) Active confirmed Problem Gastroesophageal reflux disease (977204920) GERD (gastroesophag eal reflux disease) (530.81) Active confirmed Problem Screening colonoscopy (386227444) Encounter for screening colonoscopy (Z12.11) Active confirmed Plan Of Treatment Future Test Test Name Order Date UPPER GI ENDOSCOPY 11/15/2014 COLONOSCOPY 11/15/2014 Next Appt Details Provider Name:Aman Santamaria , 05/10/2025 03:00:00 PM, [address] [place] [address], [address], [place], [address], Insurance Providers Payer Name Payer Address Payer Phone Subscriber Number Group Number Insured Name Patient Relationship to Insured Coverage Start Date Coverage End Date MEDICARE OF [place] [address] [place] [address] [id number] DAVIDE SALDAÑA Self - patient is the insured MEDEX ATTN CLAIMS [address] [place] [address] [id number] DAVIDE SALDAÑA Self - patient is the insured Medical (General) History Medical History History ICD Code Negative colonoscopy 10-10-2004--divertic ulosis and internal hemorrhoids Denies MO,DM,CVA,Lung disease,renal dise ase Hypertension GERD Overactive bladder Hyperlipidemia Surgical History Surgery Date(Month/Year) [place] Pilonidal cyst Appendectomy Carotid endarterectomy on the left 12/11 Bladder suspenion 2004 Eye surgery--eyelids
--- OUTSIDE RECORDS SUMMARY | 2025-01-24 08:00 | XMS_ITS | Encounter Summary ---
Author Organization [facility] Address [address] [place] [address] Phone Care Team Providers Care Geospatial Extractor Analysis Name Role Phone Georgie Zavaleta ENGINE GENERATOR ASSEMBLER Primary Care Provider [phone] Suad Kim ENGINE GENERATOR ASSEMBLER Unavailable [phone] Unknown, Unknown Primary Care Provider Regis Doshi MD Unavailable [phone] Reason for Visit * Reason Onset Date Comments Back Pain 04/30/2022 Encounter Details Date Type Department Care Team (Late st Contact Info) Description 04/30/2022 Nurse Triage [facility] Internal Medicine [address] [place] [address] Mirian Duke, STACEY [email or web address] Back Pain Social History Tobacco Use Types Packs/Day Years Used Date Smoking Tobacco: Former Cigarettes 2.5 34.3 1 960 - 06/29/1993 Smokeless Tobacco: Never Alcohol Use Standard Drinks/Week Comments Yes 2 (1 standard drink = 0.6 oz pur e alcohol) 2 glasses of wine per week Comments No Sex and Gender Information Value Date Recorded Sex Assigned at Female 05/19/2020 9:52 PM EST Legal Sex Female 10:06 PM EDT Gender Identity Female 05/19/2020 9:52 PM EST Sexual Orientation Straight 05/19/2020 9: 52 PM EST documented as of this encounter Progress Notes * Georgie Zavaleta NP - 04/30/2022 9:12 AM EST Pravin, thank you Dr. Bright * Mirian Duke RN - 04/30/2022 8:41 AM EST Spoke to pt regarding ongoing back pain for 2 months. Pain is intermittent. Currently pain is a 0, at its worst she reports 8/10. She reports heating pad, Tylenol and walking help pain. Advised pt tocontinue supportive therapy until appt and to call back or go to urgent care if symptoms become severe. Appt scheduled 05/06. Nurse Triage Encounter Note Reason for Triage Deepa Beckett contacted office for Back Pain Call Disposition Schedule Visit Within 2 Business Days Patient/caregiver understands and will follow disposition: Yes Patient/caregiver understands and will follow care advice: Yes, Plans To Follow Advice Disposition Comments: Protocols used: Back Gkry-Kwhcx-Wd Care Advice Given Care Advice Patient/Caregiver understands and will follow care advice?: Yes, plans to follow advice SEE IN OFFICE TODAY OR TOMORROW: * You need to be examined. Let me give you an appointment. * IF NO AVAILABLE OFFICE APPOINTMENTS: You need to be seen in an Urgent Care Center. Go to the one at [facility]. Go there today. A nearby Urgent Care Center is often a good source of care. PAIN MEDICINES: * For pain relief, you can take either acetaminophen, ibuprofen, or naproxen. * They are cych-lga-jjuzmhz (OTC) pain drugs. You can buy them at the drugstore. * ACETAMINOPHEN - REGULAR STRENGTH TYLENOL: Take 650 mg (two 325 mg pills) by mouth every 4 to 6 hours as needed. Each Regular Strength Tylenol pill has 325 mg of acetaminophen. The most you should take each day is 3,250 mg (10 pills a day). * ACETAMINOPHEN - EXTRA STRENGTH TYLENOL: Take 1,000 mg (two 500 mg pills) every 8 hours as needed.Each Extra Strength Tylenol pill has 500 mg of acetaminophen. The most you should take each day is 3,000 mg (6 pills a day). * IBUPROFEN (E.G., MOTRIN, ADVIL): Take 400 mg (two 200 mg pills) by mouth every 6 hours. The most you should take each day is 1,200 mg (six 200 mg pills), unless your doctor has told you to take more. * NAPROXEN (E.G., ALEVE): Take 220 mg (one 220 mg pill) by mouth every 8 to 12 hours as needed. Youmay take 440 mg (two 220 mg pills) for your first dose. The most you should take each day is 660 mg(three 220 mg pills a day), unless your doctor has told you to take more. COLD OR HEAT: * Cold Pack: For pain or swelling, use a cold pack or ice wrapped in a wet cloth. Put it on the sore area for 20 minutes. Repeat 4 times on the first day, then as needed. * Heat Pack: If pain lasts over 2 days, apply heat to the sore area. Use a heat pack, heating pad, or warm wet washcloth. Do this for 10 minutes, then as needed. For widespread stiffness, take a hot bath or hot shower instead. Move the sore area under the warm water. ACTIVITY: * Keep doing your day-to-day activities if it is not too painful. Staying active is better than resting. * Avoid anything that makes your pain worse. Avoid heavy lifting, twisting, and too much exercise until your back heals. * You do not need to stay in bed. CALL BACK IF: * Fever occurs * Numbness or weakness occurs, or bowel/bladder problems * Pain begins to shoot into the leg * Pain persists over 2 weeks * Pain becomes worse * You become worse Patient will call back with additional questions or if symptoms change or worsen Mirian Duke RN Reason for Disposition and Assessment Reason for Disposition Age > 50 and no history of prior similar back pain Answer Assessment - Initial Assessment Questions 1. ONSET: When did the pain begin? Couple months 2. LOCATION: Where does it hurt? (upper, mid or lower back) Lower back 3. SEVERITY: How bad is the pain? (e.g., Scale 1-10; mild, moderate, or severe) - MILD (1-3): doesn't interfere with normal activities - MODERATE (4-7): interferes with normal activities or awakens from sleep - SEVERE (8-10): excruciating pain, unable to do any normal activities Right now no pain, when it hurts 8/10 4. PATTERN: Is the pain constant? (e.g., yes, no; constant, intermittent) Intermittent, vacuuming can cause pain, walking helped pain 5. RADIATION: Does the pain shoot into your legs or elsewhere? no 6. CAUSE: What do you think is causing the back pain? unknow 7. BACK OVERUSE: Any recent lifting of heavy objects, strenuous work or exercise? no 8. MEDICATIONS: What have you taken so far for the pain? (e.g., nothing, acetaminophen, NSAIDS) Tylenol arthritis 1300mg helps pain 9. NEUROLOGIC SYMPTOMS: Do you have any weakness, numbness, or problems with bowel/bladder control? No weakness/ numbness, bladder control with laughing 10. OTHER SYMPTOMS: Do you have any other symptoms? (e.g., fever, abdominal pain, burning with urination, blood in urine) Denies all 11. : Is there any chance you are ? (e.g., yes, no; LMP) NA Protocols used: BACK [id number] documented in this encounter Plan of Treatment Not on file documented as of this encounter Visit Diagnoses Not on filedocumented in this encounter Additional Health Concerns Assessment Noted Time PHQ-2 Depression Total Score: 0 08/19/19 22 10:45 AM EDT documented as of this encounter Care Teams Geospatial Extractor Analysis Relationship Specialty Start Date End Date Georgie Zavaleta NP [email or web address] PCP - General Family Medicine 06/14/19 05/31/23 Unknown, Unknown, PCP - General 06/01/23 Suad Kim NP [address] [place] [address] Gynecology 10/06/19 Regis Almeida MD [address] [place] [address] [email or web address] Insurance Assigned Provider 06/20/23 documented as of this encounter Additional Source Comments The information contained in this document represents components of the legal health record. It is not the complete legal health record.[facility]
--- OUTSIDE RECORDS SUMMARY | 2025-01-24 08:00 | XMS_ITS | Patient Health Record ---
Author Organization [facility] sundeep [facility] Address [address] [facility] [place] [address] Care Team Providers Care Type Inspector Name Role Phone Alexsandra Guerra MD Primary Care Provider Unavailab katja Ashley Gandara Unavailable [phone] Allergies Allergen (clinical drug ingredient) Drug/Non Drug [...] Active Simvastatin 20 MG QD Ac tive [place] 3 1000 MG TID Acti ve Calcium 1200 MG BID Acti ve oxyBUTYnin Chloride 5 MG as directed Orally Active Problems Problem Type SNOMED Code ICD Code Onset Dates Problem Status W/U Status Risk Notes Problem Arthralgia (11929833) Arthralgia (719.40) Active confirmed Problem Disorder of joint of ankle and/or foot (487415050) Arthritis - Degenerative (719.97) Active confirmed Problem Calcaneal spur (15498222) Calcaneal spur (726.73) Active confirmed Problem Pain in limb (86306433) Pain in Limb (729.5) Active confirmed Problem Plantar fasciitis (090956967) Plantar Fasciitis (728.71) Active confirmed Plan Of Treatment Pending Test Test Name Order Date X ray : Foot, right 3V 11/25/2011 X ray : Ankle, right 3V 11/12/2010 Insurance Providers Payer Name Payer Address Payer Phone Subscriber Number Group Number Insured Name Patient Relationship to Insured Coverage Start Date Coverage End Date [employer] [address] [place] [address] [id number] Deepa Knight Self - patient is the insured Medical (General) History Medical History History ICD Code hypertension atherosclerotic cardiovascular disease ( ASCVD) hypercholesterolemia measles chicken pox joint implants/screws Surgical History Surgery Date(Month/Year) carotid endarterectomy 2009 appendectomy 1991 eye surgery 1995 bunionectomy 1994
--- NOTE | 2025-01-24 08:08 | A.OFFPC_ITS ---
Vital Signs 01/24/25 08:09 Height 4 ft 10 in Weight 132 lb BMI 27.6 BP 128/70 Blood Pressure Location Lt brachial Position Sitting Respiration 16 Pulse 54 Pulse Source Pulse Oximeter Temp 97.9 F Temp Source Oral Pulse Oximetry (%) 97 Intake Visit Reasons: GI Issues Rn Cardiac Rehab Required: No Accompanied by: Self / Same As Patient Allergies Sulfa (Sulfonamide Antibiotics) Allergy (Unknown, Verified 01/24/25 08:10) Redness of Skin Tobacco use date assessed: 01/24/25 Fall risk assessment: No Falls in past year Last assessed Fall Risk: 01/24/25 Dental Screening Dental Screen Date: 01/24/25 Did you have a dental visit in the last 12 months?: Yes Did you have a dental problem in the last 6 months where you did not have access to dental care?: No Was dental information given to patient?: Patient has dentist HPI GI Issues HPI Details Chief Complaint The patient presents for evaluation of an episode of diarrhea that occurred one month ago. History of Present Illness The patient is a 79 year old female presenting for follow-up regarding a recent episode of diarrhea. She reports that one month ago, she spontaneously developed frequent diarrhea with mucus, which was a significant change as she is usually constipated. She denies any associated fever, chills, or blood in the stool. At the time, she would sometimes experience bloating shortly after eating, which was followed by diarrhea. An attempt to use Imodium resulted in constipation, which is her normal bowel habit. Currently, the patient reports she is feeling much better, the diarrhea has ceased, and her bowel movements are now more regular. The patient follows with a canteen manager on a regular basis. Social History Health Maintenance - The patient has a canteen manager w art she sees regularly and will follow up with them in the near future, likely for a repeat colon screening. Review of Systems - Constitutional: Denies fevers and chil ls. - Gastrointestinal: Reports a past episo de of diarrhea with mucus and bloating after eating. - Gastrointestinal: Denies abdominal renetta n or blood in stool. - Gastrointestinal: Notes her baseline i s constipation. Physical Exam General: Cooperative, healthy appearing, comfortable, no acute distress and well developed Orientation: Patient oriented x3 Limitations: No limitations Head: Normal to inspection Ears: Hearing grossly normal bilaterally Nose: Normal external nose present Face and sinus: Normal facial exam Eyes: Appearance normal, both eyes and all related structures Neck: Normal visual inspection and Yes full ROM Respiratory: Normal respiratory effort and able to speak in complete sentences. Clear to auscultation bilaterally Cardiovascular: Regular rate and rhythm. Normal S1 and S2 GI: Normal to inspection. Soft to palpation and nontender, + BS x 4 Skin: No rashes or lesions noted Neuro: Patient oriented x3 Extremities: Normal to inspection Results Plan 1. Diarrhea The patient's episode of diarrhea from a month ago has since resolved. The etiology was suspected to be a viral illness or dietary in nature. Given the resolution of symptoms and her current well-being, no further intervention is required at this time. The patient will call with any further questions or concerns. 2. Preventative Care: Colon Cancer Jasmine sharif The patient will follow up with her regular canteen manager in the near future for a repeat colon screening. Discussion Notes I discussed with the patient that her recent symptoms were most likely from something she ate or a viral illness. As she is doing much better now, I do not believe any further intervention is needed at this time. I advised her to call with any concerns. We confirmed she will follow up with her canteen manager for a repeat colon screening. Patient Instructions - Your recent episode of diarrhea has go ne away, and you are now feeling much better. - The diarrhea was likely caused by a vi hilda or something you ate. - No more treatment is needed at this po int. - Please call our office if you have any questions or if your symptoms come back. - Make sure to follow up with your stoma ch specialist (canteen manager) soon to schedule your next colon cancer screening. [facility] Medical History Bunion Carpal tunnel syndrome Skin cancer Breast cancer GERD (gastroesophageal reflux disease) Elevated cholesterol (atherosclerosis) HTN (hypertension) Surgical History History of eyelid surgery History of bunionectomy History of carpal tunnel repair H/O carotid endarterectomy Hx of lumpectomy Hx of appendectomy History of suburethral sling procedure Family History Mother Lung cancer Father Suicide Mental health problem Social History Housing: Condominium Are you a primary career services director to a significant other at home: No Do you presently have visiting nurse or other home services: No Alcohol intake: current Alcohol intake frequency: a few times a month Alcohol type: wine Patient Tobacco Use Status: Never used Tobacco e-Cigarette/Vaping Use: Never Used service: No Current occupational status: retired Current occupational exposures/hazards: No Cognitive needs: No Hearing needs: No Vision needs: Yes Questionnaire Thrive Questionnaire Date Thrive assessed: 05/31/24 I am a: Patient What is your living situation today?: I have a steady place to live Within the past 12 months, did the food you bought not last and you didn't have the money to get more?: Never true Within the past 12 months, did you worry whether your food would run out before you got money to buy more?: Never true Do you have trouble paying for medicines?: No Do you have trouble getting transportation to medical appointments?: No Do you have trouble paying your heating and electricity bill?: No Do you have trouble taking care of your child, family member or friend?: No Do you have trouble with day-to-day activities such as bathing, preparing meals, shopping, managing finances, etc.?: No Are you currently unemployed and looking for a job?: No Are you interested in more education?: No Please select the resources that you would like help with: None Currently or been in a relationship where the following occur: No concerns reported THRIVE Score: 0 DAIANA-7 AMB Questionnaire DAIANA-7 Date DAIANA - 7 assessed: 06/07/24 Source: Developed by Drs. Aman Burns, Leann Graves, Rafael Bae and colleagues, with an educational jose guadalupe from [employer]. Physical exam (Primary Care) Vital Signs: Last Vital Signs Temp 97.9 F 01/24/25 08:09 Pulse 54 01/24/25 08:09 Resp 16 01/24/25 08:09 BP 128/70 01/24/25 08:09 Pulse Ox 97 01/24/25 08:09 BMI result Body Mass Index 27.6 Tobacco/Smoking Status: Tobacco use Status Tobacco use date assessed 01/24/25 01/24/25 08:14 Patient Tobacco Use Status Never used Tobacco 01/24/25 08:14 e-Cigarette/Vaping Use Never Used 01/24/25 08:14 Thrive Assessment: Date of Thrive Assessment Date Thrive assessed 05/31/24 01/24/25 08:14 Currently or been in a relationship where the following occur: No concerns reported Coding Level of Care Code Est Pt Level 3 (70264) Diagnoses Diarrhea R19.7 Assessment & Plan Assessment & Plan (1) Diarrhea: Code(s): R19.7 - Diarrhea, unspecified Category: Medical Plan .
[2025-01-24 08:09] VITALS: BP 128/70; PULSE 54; RESP 16; TEMP 36.6; O2SAT 97; BMI 27.6
== END 2025-01-24 09:56 | disposition home or self-care (01) ==
LOC: HO.HMCC 07:56
PROVIDERS: PCP Nurse Practitioner Family; Visit Provider Nurse Practitioner Family
DX: R19.7 Diarrhea, unspecified (principal)

== ENCOUNTER → 2025-01-24 07:55 | Outpatient (BNVA) | payer MEDICARE, SELFPAY | PROVIDERS: PCP Nurse Practitioner Family; Visit Provider Nurse Practitioner Family | DX: R19.7 Diarrhea, unspecified (principal) | CPT/HCPCS: 99212 ==